=== PATIENT | male | born 1950 | race Caucasian/White ===

== ENCOUNTER → 2017-01-21 | Outpatient (CLI) | payer OTHER ==
[~2017-01-21] MED LIST: ASCA500; FLV400; METO50TA7; OXYC-57 PO; PROM25TA PO
[2017-01-21 09:41] LABS: BASO % 0.8 %; BASO ABS # 0.04 K/uL (0-0.2); COMPLETE YES; EOS % 3.4 %; HEMATOCRIT 45.9 % (42-52); IG% 0.2 %; LYMPH % 33.9 %; LYMPH ABS # 1.71 K/uL (1.2-3.4); MEAN CELL VOLUME 91.1 fL (80-100); MEAN CORPUSCULAR HEMOGLOBIN 33.1 pg (25-34); MEAN CORPUSCULAR HGB CONC 36.4 g/dl (32-36); MEAN PLATELET VOLUME 10.8 fL (7.4-10.4); MONO % 9.3 %; NEUT % 52.4 %; PLATELET COUNT 172 K/uL (130-400); RED BLOOD COUNT 5.04 M/uL (4.7-6.1); WHITE BLOOD COUNT 5.04 K/uL (4.8-10.8)
[2017-01-21 10:12] LABS: ESTIMATED AVERAGE GLUCOSE 100 mg/dl; HA1C FLAG Normal (Normal)
[2017-01-21 10:16] LABS: BLOOD UREA NITROGEN 14 mg/dl (7-18); BUN/CREATININE RATIO 13.8 (10-20); CALCIUM 9.2 mg/dl (8.5-10.1); CARBON DIOXIDE 31 mmol/L (21-32); CHLORIDE 102 mmol/L (98-107); CHOLESTEROL 148 mg/dl (0-200); CREATININE 1.04 mg/dl (0.60-1.40); GLUCOSE 112 mg/dl (70-99); POTASSIUM 3.4 mmol/L (3.5-5.1); SODIUM 139 mmol/L (136-145)
[2017-01-21 10:20] LABS: URINE APPEARANCE CLEAR (CLEAR); URINE BILIRUBIN NEG (NEG); URINE COLOR YELLOW; URINE EPITHELIAL CELL AUTO 0-5 /lpf (0-5); URINE NITRITE NEG (NEG); URINE SPECIFIC GRAVITY 1.022 (1.000-1.030); UROBILINOGEN NEG (NEG)
[2017-01-21 10:24] LABS: MANUAL MICROSCOPIC REQUIRED? NO; REVIEW REQ? NO
[2017-01-21 10:27] LABS: CHOLESTEROL/HDL RATIO 2.7; HDL CHOLESTEROL 55 mg/dl; LDL CHOLESTEROL CALCULATED 79 mg/dl; TRIGLYCERIDES 72 mg/dl (0-150); VERY LOW DENSITY LIPOPROT CALC 14 mg/dl
== END | disposition home or self-care (01) ==
LOC: C.LAB1850 08:41
PROVIDERS: ATTEND Internal Medicine
DX: I10 Essential (primary) hypertension (principal)

== ENCOUNTER → 2017-01-31 | Outpatient (CLI) | payer OTHER | END | disposition home or self-care (01) | LOC: C.RDSM 13:44 | PROVIDERS: ATTEND Orthopaedic Surgery | DX: M25.571 Pain in right ankle and joints of right foot (principal) ==

== ENCOUNTER → 2017-02-07 | Outpatient (CLI) | payer OTHER ==
--- NOTE | 2017-02-07 13:59 | DIAGNOSTIC IMAGING REPORT ---
R LOWER EXT JOINT WITHOUT CLINICAL HISTORY: 66 years-old Male with R52. Chronic right ankle pain, most pronounced medially within the region of the calcaneus COMPARISON: Right ankle radiographs 01/31/2017. TECHNIQUE: Multiplanar, multi sequence MRI of the right ankle was performed without contrast. FINDINGS: LATERAL LIGAMENT COMPLEX: The anterior talofibular ligament, calcaneofibular ligament and posterior talofibular ligaments are intact. SYNDESMOTIC LIGAMENTS: There is mild thickening of the anterior-inferior tibiofibular ligament suggesting chronic sprain. The interosseous membrane and posterior-inferior tibiofibular ligaments are intact. DELTOID LIGAMENT COMPLEX: The superficial and deep components of the deltoid ligament are intact. ANTERIOR TENDONS: The tibialis anterior, extensor hallucis longus and extensor digitorum longus tendons are normal in position, morphology and signal. LATERAL TENDONS: There is a high-grade split tear of the peroneus brevis tendon extending for a length of 2.9 cm along its posterior malleolar and inframalleolar coarse which is nicely seen on images 26 through 29 of series 10 and image 5 of series 6. The peroneus longus tendon appears intact. MEDIAL TENDONS: The posterior tibialis is intact with mild inframalleolar tenosynovitis. The flexor digitorum longus and flexor hallucis longus tendons are intact. PLANTAR FASCIA: There is mild thickening with surrounding soft tissue edema surrounding the medial cord plantar fascia as seen on image 29 series 8 and image 13 series 6 compatible with acute plantar fasciitis. No evidence of plantar fascial tear or plantar fascial nodules. ACHILLES TENDON: The Achilles tendon appears intact. Moderate amount of edema is noted anterior to the tendon compatible with paratenonitis. Trace fluid is noted within the retrocalcaneal bursa compatible with mild bursitis, image 14 series 6. SINUS TARSI: There is normal fat signal within the sinus tarsi. The interosseous and cervical ligaments are normal. The navicular-calcaneal (spring) ligament is without acute abnormality. TARSAL TUNNEL: There are no obstructing lesions within the tarsal tunnel. Mild amount of fluid is noted within the posterior recess. BONE MARROW: Mild subcortical cystic changes are noted within the anterior calcaneus. Minimal subcortical cystic change/edema seen within the first cuneiform and navicular, likely degenerative with mild marginal spurring. Focal osteochondral defect measuring 5 x 4 mm involves the medial tibial plafond with mild associated subcortical edema, image 23 series 8 and image 16 series 6. No definite intra-articular loose body or acute fracture identified. IMPRESSION: 1. 5 mm osteochondral defect involves the medial tibial plafond with mild associated subcortical edema. No intra-articular loose body identified. 2. High-grade split tear of the peroneus brevis tendon extends for a length of 2.9 cm along its posterior malleolar and inframalleolar coarse . 3. Moderate Achilles paratenonitis with trace retrocalcaneal bursitis. 4. Mild acute plantar fasciitis. 5. Mild tibialis posterior tenosynovitis. The above report was generated using voice recognition software. It may contain grammatical, syntax or spelling errors. Electronically signed by: Aubrey Castillo M.D. 02/07/2017 1:57 PM Dictated Date/Time: 02/07/2017 1:38 PM
== END | disposition home or self-care (01) ==
LOC: C.MRI 12:43
PROVIDERS: ATTEND Orthopaedic Surgery
DX: M25.571 Pain in right ankle and joints of right foot (principal); M25.871 Other specified joint disorders, right ankle and foot; S96.911A Strain of unspecified muscle and tendon at ankle and foot level, right foot, initial encounter; X58.XXXA Exposure to other specified factors, initial encounter; M77.51 Other enthesopathy of right foot and ankle

== ENCOUNTER → 2017-02-11 | Outpatient (CLI) | payer OTHER ==
--- NOTE | 2017-02-18 13:39 | CODING QUERY MEDICAL NECESSITY ---
SUPPORTING DIAGNOSIS NEEDED A supporting diagnosis is required for the test/procedure performed on this patient in order for us to be reimbursed by the patient's insurance. Please provide a supporting diagnosis for the following test/procedure listed below next to the test name along with your signature. *If there is no additional diagnosis for this patient that would support the following test/procedure please document that below next to the test/procedure. Test(s)/Procedure(s) that require a supporting diagnosis: * VITAMIN D, 25-HYDROXY DIAGNOSIS: Provider Signature: Date: Thank you Bianca Jaeger [employer] Information Management Once completed, please kindly fax back to [phone] For questions please call [phone]
== END | disposition home or self-care (01) ==
LOC: C.LAB1850 10:53
PROVIDERS: ATTEND Orthopaedic Surgery
DX: M84.376A Stress fracture, unspecified foot, initial encounter for fracture (principal); X58.XXXA Exposure to other specified factors, initial encounter

== ENCOUNTER → 2017-02-14 | Outpatient (CLI) | payer OTHER ==
[~2017-02-14] MED LIST changes: +ASPECOTC PO; +CHOL1TAB42 PO; +INDA1TAB3 PO; -METO50TA7; +METO50TA8 PO; +MULT-506 PO; +OMEG10007 PO
--- NOTE | 2017-02-14 14:37 | DIAGNOSTIC IMAGING REPORT ---
BONE SCAN 3 PHASE LIMITED CLINICAL HISTORY: RT FOOT CALCANEAL STRESS FRACTURE. Right heel pain. TECHNIQUE: Immediately and 3 hours following the intravenous administration of 26.9 mCi of technetium 99 M MDP, 3 phase bone scan of the feet were obtained. COMPARISON STUDY: Right foot MRI 02/07/2017. FINDINGS: No abnormal radiotracer uptake within the visualized osseous structures of the right or left foot suggest a fracture. Soft tissues are unremarkable. No abnormal radiotracer uptake on the blood flow or blood pool sequences. IMPRESSION: No abnormal radiotracer uptake seen within the osseous structures of the right or left foot to suggest a fracture. Electronically signed by: Shashank Pathak M.D. 02/14/2017 2:36 PM Dictated Date/Time: 02/14/2017 2:31 PM
== END | disposition home or self-care (01) ==
LOC: C.NUCL 10:25
PROVIDERS: ATTEND Orthopaedic Surgery
DX: M79.671 Pain in right foot (principal)

== ENCOUNTER → 2017-04-02 | Day surgery (SDC) | payer OTHER ==
[2017-03-20 10:12] VITALS: Ht 177.8 cm; Wt 84.1 kg
[~2017-04-02] VITALS: Ht 177.8 cm; Wt 84.1 kg
[~2017-04-02] MED LIST changes: -ASCA500; -ASPECOTC PO; +ASPI325T45 PO; -FLV400; +LIDOCAINE HCL 2% 2 ML VIAL (20MG/ML) ONE; -OXYC-57 PO; -PROM25TA PO; +PROPOFOL IV EMULSION 10 MG/ML 20 ML VIAL IV ONE
[2017-04-02 13:44] VITALS: TEMP 36.4
--- NOTE | 2017-04-02 13:54 | Endo History and Physical ---
History & Physical Date of Service: Apr 02, 2017. Chief Complaint: screening Referring Physician: Dr. Tj Cummings History of Present Illness 66 yo CM who presents for screening colonoscopy. Past Surgical History Hx Cardiac Surgery: No Hx Internal Defibrillator: No Hx Pacemaker: No Hx Abdominal Surgery: No Hx of Implantable Prosthesis: No Hx Post-Op Nausea and Vomiting: No Hx Cancer Surgery: No Hx Thoracic Surgery: No Hx Orthopedic: Yes (LEFT SHOULDER ARTHROSCOPY) Hx Urinary Tract Surgery: Yes (LITHOTRIPSY, CYSTO WITH STENT) Family History None Social History Smoking Status: Never Smoker Hx Substance Use: No Hx Alcohol Use: Yes (1-2 GLASS WINE/DAY) Allergies Coded Allergies: No Known Allergies (Verified , 03/20/17) Current Medications Reported Home Medications Medications Dose Route/Sig Max Daily Dose Days Date Category Vitamin D (Cholecalciferol) 5,000 Unit Tab 5,000 Units PO QAM 03/20/17 Reported Multivitamin (Multivitamins) Tab 1 Tab PO QAM 03/20/17 Reported Lozol (Indapamide) 1.25 Mg Tab 1.25 Mg PO QAM 03/20/17 Reported [place]-3 (Fish Oil) 1 Ea Cap 1 Cap PO QAM 03/20/17 Reported Aspirin 325 Mg Tab 325 Mg PO QAM 03/20/17 Reported Toprol-Xl (Metoprolol Succinate) 50 Mg Tabcr 50 Mg PO QAM 01/27/06 Reported Vital Signs Weight (Kilograms): 84.09 Height (Feet): 5 Height (Inches): 10 Date Time Temp Pulse Resp B/P (MAP) Pulse Ox O2 Delivery O2 Flow Rate FiO2 04/02/17 13:44 36.4 50 18 159/88 (111) 98 Room Air Physical Exam General Appearance: WD/WN, no apparent distress Respiratory/Chest: Auscultation: breath sounds normal Cardiovascular: Heart Auscultation: RRR Abdomen: Bowel Sounds: normal Inspection & Palpation: soft, non-distended, no tenderness, guarding & rebound Assessment and Plan Assessment: 66 yo CM who presents for screening colonoscopy. Plan: Proceed with colonoscopy.
--- NOTE | 2017-04-02 14:34 | Discharge Instructions ---
Endoscopy Patient Instructions Date / Procedure(s) Performed Apr 02, 2017. Colonoscopy Allergy Information Coded Allergies: No Known Allergies (Verified , 03/20/17) Discharge Date / Findings Apr 02, 2017. Colon polyp Internal hemorrhoids Medication Instructions Stopped Medication(s): stopped ASA and supplements on Friday OK to resume all medications today as prescribed Reported Home Medications Medications Dose Route/Sig Max Daily Dose Days Date Category Vitamin D (Cholecalciferol) 5,000 Unit Tab 5,000 Units PO QAM 03/20/17 Reported Multivitamin (Multivitamins) Tab 1 Tab PO QAM 03/20/17 Reported Lozol (Indapamide) 1.25 Mg Tab 1.25 Mg PO QAM 03/20/17 Reported [place]-3 (Fish Oil) 1 Ea Cap 1 Cap PO QAM 03/20/17 Reported Aspirin 325 Mg Tab 325 Mg PO QAM 03/20/17 Reported Toprol-Xl (Metoprolol Succinate) 50 Mg Tabcr 50 Mg PO QAM 01/27/06 Reported Provider Instructions Activity Restrictions - No exercising or heavy lifting for 24 hours. - Do not drink alcohol the day of the procedure. - Do not drive a car or operate machinery until the day after the procedure. - Do not make any important decisions or sign important papers in 24 hours after the procedure. Following Day: - Return to full activity which may include returning to work/school. Diet Start your diet with liquids and light foods (jello, soup, juice, toast). Then eat your usual diet if not nauseated. Treatment For Common After Affects For mild abdominal pain, bloating, or excessive gas: - Rest - Eat lightly - Lie on right side Follow-Up Information Follow-up with Dr. Tj Cummings as scheduled Anesthesia Information What You Should Know You have had a procedure that required some medicine to reduce anxiety and discomfort. This treatment is called moderate sedation. After receiving the treatment, you may be sleepy, but you will be able to breathe on your own. The effects of the treatment may last for several hours. Follow these instructions along with Activity/Diet recommendations noted above: * Do NOT do anything where dizziness or clumsiness would be dangerous. * Rest quietly at home today, then you can be up and about tomorrow. * Have a responsible person stay with you the rest of today. * You may have had an I.V. today. If so, you may take the dressing off later today. Recommendations Call your doctor if: * Trouble breathing * Continuous vomiting for more than 24 hours * Temperature above 101 degrees * Severe abdominal pain or bloating * Pain not relieved by pain medicine ordered * There is increased drainage or redness from any incision * A large amount of rectal bleeding greater than 2-3 tablespoons. (If you had a polyp/s removed or have hemorrhoids, a small amount of blood - from the rectum is to be expected.) * You have any unanswered questions or concerns. IN THE EVENT OF A SERIOUS EMERGENCY, GO TO THE NEAREST EMERGENCY ROOM Your discharge instructions were prepared by provider Jey Jimenes. Patient Instructions Signature Page Manjinder Barraza Patient (or Guardian) Signature/Date: I have read and understand the instructions given to me by my caregivers. Caregiver/RN/Doctor Signature/Date: The above-named patient and/or guardian has received patient instructions on this date. + Original Patient Signature Page (only) stays with chart. Please make copy for patient.
--- NOTE | 2017-04-02 14:39 | GI REPORT ---
Procedure Date: 04/02/2017 1:35 PM Procedure: Colonoscopy Indications: Screening for colorectal malignant neoplasm Medicines: Monitored Anesthesia Care Complications: No immediate complications. Estimated Blood Loss: Estimated blood loss: none. Procedure: Pre-Anesthesia Assessment: - Prior to the procedure, a History and Physical was performed, and patient medications and allergies were reviewed. The patient's tolerance of previous anesthesia was also reviewed. The risks and benefits of the procedure and the sedation options and risks were discussed with the patient. All questions were answered, and informed consent was obtained. Prior Anticoagulants: The patient has taken no previous anticoagulant or antiplatelet agents. ASA Grade Assessment: II - A patient with mild systemic disease. After reviewing the risks and benefits, the patient was deemed in satisfactory condition to undergo the procedure. After I obtained informed consent, the scope was passed under direct vision. Throughout the procedure, the patient's blood pressure, pulse, and oxygen saturations were monitored continuously. The scope was introduced through the anus and advanced to the terminal ileum. The colonoscopy was performed without difficulty. The patient tolerated the procedure well. The quality of the bowel preparation was good. The terminal ileum, ileocecal valve, appendiceal orifice, and rectum were photographed. Findings: The perianal and digital rectal examinations were normal. A 4 mm polyp was found in the sigmoid colon. The polyp was sessile. The polyp was removed with a cold snare. Resection and retrieval were complete. Non-bleeding internal hemorrhoids were found during retroflexion. The hemorrhoids were small. Impression: - One 4 mm polyp in the sigmoid colon, removed with a cold snare. Resected and retrieved. - Non-bleeding internal hemorrhoids. Recommendation: - Resume previous diet. - Continue present medications. - Repeat colonoscopy for surveillance based on pathology results. - Return to primary care physician as previously scheduled. Jey Jimenes, DO 04/02/2017 2:38:50 PM This report has been signed electronically. Note Initiated On: 04/02/2017 1:35 PM I attest to the content of the Intraoperative Record and orders documented therein, exceptions below
[2017-04-02 15:10] VITALS: BP 120/83; PULSE 48; O2SAT 97
--- NOTE | 2017-04-02 15:21 | Anesthesiology Progress Note ---
Anesthesia Post Op Note Date & Time Apr 02, 2017 at 15:21 Vital Signs Pain Intensity: 0 Vital Signs Past 12 Hours Date Time Temp Pulse Resp B/P (MAP) Pulse Ox O2 Delivery O2 Flow Rate FiO2 04/02/17 15:10 48 18 120/83 (95) 97 Room Air 04/02/17 14:56 51 18 126/76 (93) 96 Room Air 04/02/17 14:49 46 18 106/63 (77) 95 Room Air 04/02/17 14:41 49 18 103/64 (77) 95 Room Air 04/02/17 14:36 55 18 106/67 (80) 95 Room Air 04/02/17 13:44 36.4 50 18 159/88 (111) 98 Room Air Notes Mental Status: alert / awake / arousable, participated in evaluation Pt Amnestic to Procedure: Yes Nausea / Vomiting: adequately controlled Pain: adequately controlled Airway Patency, RR, SpO2: stable & adequate BP & HR: stable & adequate Hydration State: stable & adequate Anesthetic Complications: no major complications apparent
== END | disposition home or self-care (01) ==
LOC: C.GI 12:42
PROVIDERS: ATTEND Internal Medicine
DX: Z12.11 Encounter for screening for malignant neoplasm of colon (principal); D12.5 Benign neoplasm of sigmoid colon; K64.8 Other hemorrhoids; I10 Essential (primary) hypertension; M19.90 Unspecified osteoarthritis, unspecified site; Z87.442 Personal history of urinary calculi; Z79.82 Long term (current) use of aspirin; Z85.820 Personal history of malignant melanoma of skin

== ENCOUNTER 2023-07-09 05:25 | Observation (INO) ==
--- NOTE | 2023-07-09 05:46 | Emergency Department Note ---
Impression & Plan Lower back pain, History of lumbar surgery, History of prostate cancer ED Provider Note NAME: TANIA ALVARENGA AGE: 72 SEX: M : 1950 ARRIVES VIA: Ambulance INFORMANT: [Patient][nursing] ED PROVIDER(S): [Mario Ko MD] CHIEF COMPLAINT: Back pain HISTORY OF PRESENT ILLNESS: The patient is a 72-year-old male who states he has had previous back surgery in 2020. He has hardware in place. The patient has a history also of prostate cancer. The patient states that he was here 2 days ago for lower back pain that he thought occurred after he stepped down off of his lawnmower. He has pain across the lower back that is worse with any movement. The patient was seen in the ED and a lumbar spine series was done, there was no fracture or issues with the hardware. He was given Robaxin and oxycodone. The patient states that his pain is at the point where he can barely move. He could not get out of bed today, he presents by ambulance. In route, he was given IV Zofran and 100 mcg of IV fentanyl, the fentanyl has helped his discomfort. The patient does not feel pain radiating down his legs. No difficulty with urination. No fever. He does not have any leg weakness. He is concerned because instead of feeling better, he feels worse. PMHx/PSHx/Social Hx: See Below PHYSICAL EXAM: GENERAL: Patient is in no acute distress. HEENT: No acute trauma, normocephalic atraumatic, mucous membranes moist, no nasal congestion. NECK: No stridor, no adenopathy, no meningismus, trachea is midline. LUNGS: Clear to auscultation bilaterally, no wheeze, no rhonchi, breath sounds equal. HEART: Without murmurs gallops or rubs, regular rate and rhythm. ABDOMEN: Soft, nontender, no peritonitis. EXTREMITIES: No cyanosis, full range of motion of all the joints without pain or difficulty. NEUROLOGIC: Oriented x 3, no acute motor or sensory deficits, no focal weakness. I cannot elicit any reflexes in the patella or Achilles. His great toe strength is intact and strong bilaterally with dorsiflexion. Lower extremity plantar flexion bilaterally also is intact and strong. SKIN: No jaundice, no diaphoresis. Back: His pain worsens with any movement however, I cannot elicit any area of true discomfort with palpation. DIFFERENTIAL DIAGNOSIS: Musculoskeletal pain, fracture, metastasis, hematoma, hardware loosening, disc herniation, among others. EMERGENCY DEPARTMENT PROCEDURES: MEDICAL DECISION MAKING: There is no leukocytosis or concerning anemia. There is a normal platelet count. No renal failure or significant electrolyte abnormality. Urinalysis result is pending. On exam, the patient was not febrile or toxic. I could not elicit any reflexes in the lower extremities. His strength in the lower extremities seemed intact and equal bilaterally. His lower back pain did seem to worsen with any type of movement. The patient was ordered for IV morphine to be given as needed for pain. He was ordered for a Lidoderm patch. Given the circumstances, an MRI of the lumbar spine was ordered, this result is pending. At this point, the case is being assumed by Dr. Frey at the change of shift. Disposition pending. Prior/Outside records/notes reviewed: Today's EMS notes describing his presentation and transport to this hospital. Imaging/x-ray results per my interpretation: Chronic Medical/Social conditions affecting care: Advanced age, history of prostate cancer as well as lumbar back surgery. Care/Management discussed with: Level of care consideration(s): After review of the information above and other included data: -- Pending DISPOSITION: Still a patient here in the ED Past Med/Surg History Problem List (Updated 07/09/23 @ 06:09 by Mario Ko MD) History of prostate cancer (Acute) History of lumbar surgery (Acute) Lower back pain (Acute) Low back pain (Acute) Prostate cancer (Chronic 03/18/22) Left epididymitis Testicular pain Right hip pain Hypothyroidism in adult Nonobstructive atherosclerosis of coronary artery [facility] 2002: 20% prox LAD stenosis, 30% mid LAD stenosis, 50% ramus intermedius Hypertension (Chronic) Erectile dysfunction (Chronic) Tubular adenoma of colon (Chronic) Medical History Sinus bradycardia Nephrolithiasis Surgical History Hx of appendectomy History of arthroscopy of left shoulder S/P lumbar laminectomy Family History Mother Dementia Father Heart disease Hypertension Diabetes mellitus, type II Brother Heart disease Kidney transplant recipient, Onset Age: 51 Diabetes Brother Diabetes Heart disease Sister Diabetes Sister No problems noted. 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; Feels Safe at Home: Yes Childhood Exposure to Second-Hand Smoke: No Dental Care, Regularly: No Physical Activity Frequency: 5-6 Times per Week Physical Activity Frequency Comment: walk a mile and a half a day Seatbelt Use: always Sunscreen Use: No Allergies Allergies Allergy/AdvReac Type Severity Reaction Status Date / Time No Known Drug Allergies Allergy Verified 05/22/23 13:15 Home Meds Home Medications Medication Instructions Recorded Confirmed cholecalciferol (vitamin D3) 25 25 mcg PO DAILY 04/04/22 05/22/23 mcg (1,000 unit) capsule [id number] 120 mcg-lutein tab PO 04/04/22 05/22/23 150 mcg-herb 50 mg chewable tablet (Alive Men's 50 Plus Multivitamin) Previous Rx's Medication Instructions Recorded sildenafil 50 mg tablet 50 mg PO DAILY PRN sexual activity 12/20/21 #30 tabs tamsulosin 0.4 mg capsule 0.4 mg PO DAILY #30 caps 07/16/22 levothyroxine 25 mcg tablet 25 mcg PO DAILY #90 tabs 01/01/23 olmesartan 40 mg tablet 40 mg PO DAILY #90 tabs 01/01/23 rosuvastatin 10 mg tablet 10 mg PO DAILY #90 tabs 01/28/23 indapamide 1.25 mg tablet 1.25 mg PO DAILY #90 tabs 03/18/23 aspirin 81 mg tablet,delayed 81 mg PO DAILY #90 tabs 03/27/23 release methocarbamol 500 mg tablet 500 mg PO TID PRN muscle spasm #12 07/07/23 tabs Results & Data (ED) Vital Signs Vital Signs - 24 hr 07/09/23 05:38 07/09/23 06:39 Temperature 36.6 C Temperature Source Oral Pulse Rate 52 L Pulse Rate [Finger] 50 L Pulse Rhythm Regular Pulse Strength Normal Respiratory Rate 14 16 Respiratory Effort / Characteristics Non-Labored Non-Labored Respiratory Depth Normal Normal Respiratory Pattern Regular Regular Blood Pressure 135/74 Blood Pressure Mean 94 Blood Pressure Position Sitting Pulse Oximetry 94 94 Oxygen Delivery Method Room Air Room Air Sepsis Recent Fever Within 48 Hours No Sepsis New/Unexplained Change in Mental Status No Sepsis Action Taken by Nursing No Action Required Home Medications Current Medication List: was personally reviewed by me Laboratory Data Attestation: I reviewed the patient's lab results. 07/09/23 05:32 07/09/23 05:32 Lab Results 07/09/23 Range/Units 05:32 WBC 5.80 (4.8-10.8) K/ul RBC 4.51 L (4.70-6.10) M/uL Hgb 14.6 (14.0-18.0) g/dl Hct 41.0 L (42.0-52.0) % MCV 90.9 (80.0-100.0) fL MCH 32.4 (25.0-34.0) pg MCHC 35.6 (32.0-36.0) g/dL RDW Std Deviation 40.8 (36.4-46.3) fL RDW Coeff of Harsha 12.3 (11.5-14.5) % Plt Count 163 (130-400) K/uL MPV 10.3 (9.4-12.4) fL Immature Gran % (Auto) 0.3 % Neut % (Auto) 67.5 % Lymph % (Auto) 19.3 % [place] % (Auto) 8.6 % Eos % (Auto) 3.3 % Baso % (Auto) 1.0 % Neut # (Auto) 3.91 (1.40-6.50) K/uL Lymph # (Auto) 1.12 L (1.20-3.40) K/uL [place] # (Auto) 0.50 (0.11-0.59) K/uL Eos # (Auto) 0.19 (0.00-0.50) K/uL Baso # (Auto) 0.06 (0.00-0.20) K/uL Immature Gran # (Auto) 0.02 (0.01-0.20) K/uL Sodium 140 (136-145) mmol/L Potassium 3.9 (3.5-5.1) mmol/L Chloride 106 (98-107) mmol/L Carbon Dioxide 28 (21-32) mmol/L Anion Gap 6 (3-11) BUN 23 (6-23) mg/dl Creatinine 1.22 (0.6-1.4) mg/dl Est Cr Clr Drug Dosing 53.1 ml/min Est GFR ( Amer) 67.3 ml/min Est GFR (Non-Af Amer) 58.0 ml/min BUN/Creatinine Ratio 18.9 (10-20) Glucose 119 H (70-99(Fasting)) mg/dl Calcium 9.6 (8.6-10.3) mg/dl Administered Medications Morphine Sulfate (Morphine Sulfate 4 Mg/Ml 1 Ml Carp\Vial) 4 mg IV Q30M PRN PRN Reason: Pain Stop: 07/23/23 05:38 Last Admin: 07/09/23 06:31 Dose: 4 mg Documented By: KEW Discontinued Medications Lidocaine (Lidocaine 5% 1 Patch) 1 patch TD NOW STA Stop: 07/09/23 05:40 Last Admin: 07/09/23 06:31 Dose: 1 patch Documented By: HERBERTH Discharge Plan Visit Data Chief Complaint: Back Injury/Pain Stated Complaint: BACK PAIN, HERE FRIDAY FOR SAME ED Provider: Mario Ko Discharge Problem: Lower back pain, History of lumbar surgery, History of prostate cancer Patient Disposition: Still a Patient Condition: Good Forms Stand Alone Forms: My [facility] [employer] Prescriptions Prescriptions: No Action cholecalciferol (vitamin D3) 25 mcg (1,000 unit) capsule 25 mcg PO DAILY Alive Men's 50 Plus Multivit 120 mcg-150 mcg -50 mg tablet,chewable PO tamsulosin 0.4 mg capsule 0.4 mg PO DAILY Qty: 30 5RF Patient Comments: taking once weekly depending on urinary symptoms Rx Instructions: Take one pill after supper. levothyroxine 25 mcg tablet 25 mcg PO DAILY Qty: 90 3RF Rx Instructions: 1 tablet, 1 hour before breakfast. olmesartan 40 mg tablet 40 mg PO DAILY Qty: 90 3RF rosuvastatin 10 mg tablet 10 mg PO DAILY Qty: 90 3RF indapamide 1.25 mg tablet 1.25 mg PO DAILY Qty: 90 3RF aspirin 81 mg tablet,delayed release (DR/EC) 81 mg PO DAILY Qty: 90 3RF sildenafil 50 mg tablet 50 mg PO DAILY PRN (Reason: sexual activity) Qty: 30 5RF methocarbamol 500 mg tablet 500 mg PO TID PRN (Reason: muscle spasm) Qty: 12 0RF Referrals Referrals: Sylvia Hartman MD [Primary Care Provider] - Discharge Problem: Lower back pain Qualifiers: Chronicity: acute Back pain laterality: bilateral Sciatica presence: without sciatica Qualified Code(s): M54.50 - Low back pain, unspecified
[2023-07-09 06:04] LABS: Basophils # (auto) 0.06 K/uL (0.00-0.20); Eosinophils # (auto) 0.19 K/uL (0.00-0.50); Eosinophils % (auto) 3.3 %; Hemoglobin 14.6 g/dl (14.0-18.0); Immature Granulocytes # (auto) 0.02 K/uL (0.01-0.20); Immature Granulocytes % (auto) 0.3 %; Lymphocytes # (auto) 1.12 K/uL (1.20-3.40); Lymphocytes % (auto) 19.3 %; Mean Corpuscular Hemoglobin 32.4 pg (25.0-34.0); Mean Corpuscular Hgb Conc 35.6 g/dL (32.0-36.0); Mean Corpuscular Volume 90.9 fL (80.0-100.0); Mean Platelet Volume 10.3 fL (9.4-12.4); Monocytes % (auto) 8.6 %; Neutrophils # (auto) 3.91 K/uL (1.40-6.50); Neutrophils % (auto) 67.5 %; Platelet Count 163 K/uL (130-400); RDW Coefficient of Variation 12.3 % (11.5-14.5); RDW Standard Deviation 40.8 fL (36.4-46.3); Red Blood Count 4.51 M/uL (4.70-6.10)
[2023-07-09 06:18] LABS: BUN Creatinine Ratio 18.9 (10-20); Calcium 9.6 mg/dl (8.6-10.3); Creatinine Clr Calc Pharmacy 53.1 ml/min; Est GFR (African American) 67.3 ml/min; Potassium 3.9 mmol/L (3.5-5.1)
[2023-07-09] MEDS: LIDOCAINE 5% 1 PATCH TD STA (06:31)
[2023-07-09] MEDS: MoRPHine SULFATE 4 MG/ML 1 ML CARP\\VIAL IV PRN ×2 (06:31→16:58)
[2023-07-09] MEDS: GADOBUTROL 65ML VIAL IV ONE (07:04)
--- NOTE | 2023-07-09 07:26 | Emergency Department Note ---
ED Visit Note The patient was taken in signout from Dr. Ko at the change of shift. Please see that note for details. The patient was pending MRI for intractable back pain. He had significant concern due to his history of prostate cancer and level of pain. MRI was performed and he was found to have a disc herniation with canal narrowing. Given his prior surgery at [facility], I did consult with his surgeon, Dr. Olsen. We reviewed the details of the MRI and the patient's history. Options were discussed about admission here for steroids and pain cont rol versus emergent transfer. He felt it was reasonable to try conservative management first with the option to follow him up promptly in the office after discharge. He did note if the patient does have escalation of symptoms or issues that the patient could be transferred for further care. Discussed this with the patient and significant other. They felt comfortable with this plan. Consultation was made with Dr. Delio Lee of the [facility] service. Patient was evaluated in the ER for further management. .
--- NOTE | 2023-07-09 07:47 | Magnetic Resonance Report ---
LUMBAR SPINE MRI WITH AND WITHOUT CONTRAST HISTORY: low back pain, hist surg and prostate cancer TECHNIQUE: Multiplanar multisequence MRI of the lumbar spine was performed both before and after the intravenous administration of contrast. COMPARISON: Lumbar spine MRI 11/05/2019. FINDINGS: For the purpose of the report the L5-S1 disc space will be located on axial image 11 of 17. No fracture or subluxation within the lumbar spine. There is posterior decompression and fusion from L3 through S1 with pedicle screws and rods. The visualized sacrum is intact. Paravertebral soft tissu es are unremarkable. Mild disc space narrowing at L2-L3. The conus terminates at the L1 level. Edema at the laminectomy sites is likely due to the postoperative change. No abnormal enhancement. L1-L2: Tiny broad-based posterior disc bulge without significant central canal or neural foraminal na rrowing. L2-L3: There is a broad-based posterior disc bulge asymmetric to the right with a small focal central disc protrusion. In conjunction with the ligamentum/facet hypertrophy this results in severe central canal narrowing with an AP diameter of 4 mm. There is also moderate to severe right and mild left ne ural foraminal narrowing due to the disc bulge and facet hypertrophy. This severe central canal narro wing results in mass effect along the cauda equina. L3-L4: No significant central canal narrowing due to the posterior decompression. No significant neur al foraminal narrowing. L4-L5: No significant central canal narrowing due to the posterior decompression. There is mild to mo derate right and mild left neural foraminal narrowing due to the facet hypertrophy. L5-S1: No significant central canal narrowing due to the posterior decompression. There is mild right and [id number] left neural foraminal narrowing. IMPRESSION: 1. No fracture or subluxation within the lumbar spine. 2. A broad-based posterior disc bulge asymmetric to the right with a small focal central disc protrus ion and ligamentum/facet hypertrophy at the L2-L3 level. This results in severe central canal narrowi ng with mass effect along the cauda equina. 3. Posterior decompression and fusion from L3 through S1 with pedicle screws and rods. No significant central canal narrowing at these levels. 4. Multilevel bilateral neural foraminal narrowing as described above. ACT 112: Negative or not required by law. Electronically signed by: Shashank Pathak M.D. 07/09/2023 7:46 AM
[2023-07-09] MEDS: dexAMETHasone**PF** 10 MG/ML VIAL IV ONE (11:41)
--- NOTE | 2023-07-09 11:55 | History & Physical Report ---
Date of Service July 09, 2023 Assessment & Plan (1) Lower back pain: Plan: Back pain without radiation Started suddenly 07/06 after stepping down from a lawnmower, no falls/traumatic injury MRIL-spine shows a broad-based posterior disc bulge with right-sided asymme try, small focal central disc protrusion with facet hydrophilia at L2-L3 resulting in severe central canal narrowing with mass effect along the cauda equina. No significant narrowing is seen at L3-S1. No fracture or subluxation is seen. - Findings were discussed w/ Dr. Frey prior to admission who discussed MRI in detail with [facility] neurosurgery Dr. Wang while patient was in the ER. As he has not had any bowel or bladder incontinence, saddle anesthesia, lower extremity weakness, or radiation/paresthesias into the legs he was recommended for initial medical therapy with steroids and outpatient follow-up to [facility]; however should he worsen, develop clinical signs of cauda equina, or fail conservative evaluation and then could follow-up for transfer for surgical intervention at that time. Of note patient has diminished patellar DTR bilaterally at baseline which has not changed. Patient was recommended for admission and conservative medical tx No new neurologic deficits at time of admitting exam. Strength/sensation intact - Continue dexamethasone 10mg daily Neurovascular checks every 4 hours Multimodal pain control Tylenol, lidocaine, dexamethasone, morphine for breakthrough Patient is on aspirin for primary prevention, this is held temporarily (2) Hypothyroidism in adult: Plan: Hypothyroidism Continue Synthroid (3) Hypertension: Plan: Hypertension Continue olmesartan Continue indapamide Aspirin temporarily held (4) Nonobstructive atherosclerosis of coronary artery: Plan: Nonischemic CAD Patient reports no history of chest pain, angina, limiting shortness of breath. No history of stents. No history of heart failure. Denies history of CAD Continue hypertension control as noted History of stents. Reports he is on aspirin daily for primary prevention. This is held on admission Continue statin (5) History of prostate cancer: Plan: - S/p radiation therapy. No lower urinary tract symptoms. Is no longer on Flomax and has not had any difficulty voiding in the last 24 hours Plan DVT prophylaxis: Heparin twice daily Disposition: Medical surgical CODE STATUS: Full code Diet: Full liquids, if any worsening symptoms/deficits make n.p.o. History of Present Illness Primary Care Provider: MD Matthew Arias is a 72-year-old male with a past medical history of colonic adenoma, prostate cancer, hypothyroidism, nonobstructive CAD, hypertension, and history of back pain s/p L3-L1 posterior decompression and fusion 03/23/2020 @ [facility] w/ Dr. Aneesh Olsen due to pain with complete relief postoperatively who presents to the ER with 2 days of lower back pain which occurred after stepping down off of his lawnmower. Patient has not had any falls. He notes that he has difficulty moving it due to pain which is localized in his lower back. He does not have any pain radiating to his legs, no saddle anesthesia, no bowel or bladder retention or incontinence, and has not had any weakness in his lower extremities but notes his movement is pain limited by exacerbation of pain in his mid to low back. No fever, chills, sweats or recent flulike symptoms. Due to severe pain and history of lumbar surgery MRI was obtained in the ER. MRIL-spine shows a broad-based posterior disc bulge with right-sided asymmetry, small focal central disc protrusion with facet hydrophilia at L2-L3 resulting in severe central canal narrowing with mass effect along the cauda equina. No significant narrowing is seen at L3-S1. No fracture or subluxation is seen. Above findings were discussed w/ Dr. Frey who discussed MRI in detail with [facility] neurosurgery Dr. Wang while patient was in the ER. As he has not had any bowel or bladder incontinence, saddle anesthesia, lower extremity weakness, or radiation/paresthesias into the legs he was recommended for initial medical therapy with steroids and outpatient follow-up to [facility]; however should he worsen, develop clinical signs of cauda equina, or fail conservative evaluation and then could follow-up for transfer for surgical intervention at that time. Patient was recommended for admission at [facility]. Per Pt: Friday was doing welli lais normal state of health, was away for a few weeks and went ot catch up mowing grass. Stepped off the platform to his zero turn fish straightener and had sudden jolt like pain in the middle of his low back. No radiation ot his legs. No weakness. Was able to finish mowing, but has progressively worsening pain in his low back slightly more L than R sided but which is mostly in the middle. Was seen in the ER, had an XR which was normal and returned home. Pain has been consistent and not improving, is tolerable 1-2/10 at rest, but with any movement has an increase to 9/10 pain. Came back into the ER today due to per sistent symptoms despite rest. Attempted tx: Methocarbamol yesterday, ibuprofen 2 tablets every 4-5 hours, 1x oxycodone this morning, and ice pack all with minimal relief. No weakness in th elegs, but back pain is worse with movement No numbness or tingling No saddle anesthesia Last urinated 1 hour ago, no difficulty with voiding 'other than moving to get there.' Past hsitory of prostate cancer, finished radiation last June. NO known mets. Was transiently on flomax, thi sis no longer required and has not had any hematuria. Last bowel movement was shortly before injuring his back. Denies bowel incontience. No history of heart attack or ischemic heart disease. Is on a statin, BP control, and baby aspirin for prevention. No history of DM/insulin use No history of DVT/PE. Medical History: Reviewed Medications: Reviewed Surgical History: Reviewed Family history: Reviewed Allergies: Reviewed Social History: No tobacco. Etoh 1 glass of wine in the evenings. No hx withdrawal. Code Status: Full Allergies Allergy/AdvReac Type Severity Reaction Status Date / Time No Known Drug Allergies Allergy Verified 05/22/23 13:15 Home Medications Medication Instructions Recorded Confirmed Type sildenafil 50 mg tablet 50 mg PO DAILY PRN sexual activity 12/20/21 07/09/23 Rx #30 tabs cholecalciferol (vitamin D3) 25 25 mcg PO DAILY 04/04/22 07/09/23 History mcg (1,000 unit) capsule htxabtin-shm-thcge 120 mcg-lutein 1 tab PO DAILY 04/04/22 07/09/23 History 150 mcg-herb 50 mg chewable tablet (Alive Men's 50 Plus Multivitamin) tamsulosin 0.4 mg capsule 0.4 mg PO DAILY #30 caps 07/16/22 07/09/23 Rx levothyroxine 25 mcg tablet 25 mcg PO DAILY #90 tabs 01/01/23 07/09/23 Rx olmesartan 40 mg tablet 40 mg PO DAILY #90 tabs 01/01/23 07/09/23 Rx rosuvastatin 10 mg tablet 10 mg PO DAILY #90 tabs 01/28/23 07/09/23 Rx indapamide 1.25 mg tablet 1.25 mg PO DAILY #90 tabs 03/18/23 07/09/23 Rx aspirin 81 mg tablet,delayed 81 mg PO DAILY #90 tabs 03/27/23 07/09/23 Rx release methocarbamol 500 mg tablet 500 mg PO TID PRN muscle spasm #12 07/07/23 07/09/23 Rx tabs ciclopirox 8 % topical solution 1 applic topical PM 07/09/23 07/09/23 History Past Med/Surg History Problem List (Updated 07/09/23 @ 06:09 by Mario Ko MD) History of prostate cancer (Acute) History of lumbar surgery (Acute) Lower back pain (Acute) Low back pain (Acute) Prostate cancer (Chronic 03/18/22) Left epididymitis Testicular pain Right hip pain Hypothyroidism in adult Nonobstructive atherosclerosis of coronary artery [facility] 2002: 20% prox LAD stenosis, 30% mid LAD stenosis, 50% ramus intermedius Hypertension (Chronic) Erectile dysfunction (Chronic) Tubular adenoma of colon (Chronic) Medical History Sinus bradycardia Nephrolithiasis Surgical History Hx of appendectomy History of arthroscopy of left shoulder S/P lumbar laminectomy Family History Mother Dementia Father Heart disease Hypertension Diabetes mellitus, type II Brother Heart disease Kidney transplant recipient, Onset Age: 51 Diabetes Brother Diabetes Heart disease Sister Diabetes Sister No problems noted. 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 NAD. Cooperative. HEENT: Atraumatic, normocephalic. Pupils equal and reactive. EOM intact, no gaze preference or deviation, no nystagmus. Pulm: CTAB A&P. -wheezes, -rales, -rhonchi. Symmetrical chest rise. No increased work of breathing. No respiratory distress. Cardiac: RRR. Radial pulses intact and symmetrical. Abdominal: Nontender, nondistended, soft. BS present. Back: No midline spinal tenderness. No radicular symptoms elicited on palpation. Patient indents is some right-sided paraspinal tension/discomfort at approximately L2-L4 without induction of radiating pain MOTOR: RUE: 5/5 Elbow flexion/extension, wrist flexi on/extension 5/5 intensive care unit registered nurse strength LUE: 5/5 Elbow flexion/extension, wrist flexi on/extension 5/5 intensive care unit registered nurse strength RLE: 5/5 to hip flexion although pain limited . 5/5 knee extension, ankle dorsiflexion/plantarflexion LLE: 5/5 to hip flexion although pain limited . 5/5 knee extension, ankle dorsiflexion/plantarflexion REFLEXES: 1/4 patellar, no ankle clonus SENSORY: Normal to touch in upper and lower extremities without deficit or asymmetry Results & Data Results & Data Vital Signs (Past 12 Hours) Vital Signs Temp Pulse Pulse Resp BP BP Pulse Ox 07/09/23 10:39 52 L 16 135/82 98 07/09/23 06:39 50 L 16 94 07/09/23 05:38 36.6 C 52 L 14 135/74 94 O2 Del Method 07/09/23 10:39 07/09/23 06:39 Room Air 07/09/23 05:38 Room Air PG Care Time/CCT Total # of Minutes Spent Total Time Spent with Patient: Total time spent is greater than 50% in coordination of care (as documented) at patient's floor/unit and/or counseling patient: Coding Level of Care Code 64292 INT INP/OBS CARE MIN Diagnoses Lower back pain M54.50 Back pain laterality: bilateral Chronicity: acute Sciatica presence: without sciatica Hypothyroidism in adult E03.9 Hypertension I10 Nonobstructive atherosclerosis of coronary artery I25.10 History of prostate cancer Z85.46 (1) Lower back pain Back pain laterality: bilateral Chronicity: acute Sciatica presence: without sciatica Qualified Code(s): M54.50 - Low back pain, unspecified
[2023-07-09] MEDS: MoRPHine SULFATE 2 MG/ML CARP IV PRN (12:49)
[2023-07-09 13:22] LABS: Appearance Urine Clear (Clear); Bilirubin Urine Negative (Negative); Blood Urine Negative (Negative); Color Urine Yellow; Glucose Urine UA Negative (Negative); Ketones Urine Negative (Negative); Leukocyte Esterase Urine Negative (Negative); Nitrite Urine Negative (Negative); Protein Urine Negative (Negative); Specific Gravity Urine 1.024 (1.000-1.030); Urobilinogen Urine Negative (Negative); pH Urine 5.5 (4.5-7.5)
[2023-07-09] MEDS ORDERED: METHOCARBAMOL 500 MG TABLET PO PRN (14:42)
[2023-07-09] MEDS: ACETAMINOPHEN 325 MG TAB PO PRN (14:47)
[2023-07-09] MEDS: KETOROLAC TROMETHAMINE 15 MG/ML VIAL IV PRN (15:33)
[2023-07-09] MEDS: HEPARIN SOD 5,000 UNIT/0.5 ML VIAL SQ SCH (20:59)
[2023-07-10] MEDS: LEVOTHYROXINE SODIUM 25 MCG TABLET PO SCH (05:22)
--- NOTE | 2023-07-10 08:27 | Hospitalist Progress Note ---
Date of Service July 10, 2023 Assessment & Plan (1) Lower back pain: Plan: - Patient experienced sudden onset of lower back pain without radiation that started suddenly 07/06 after stepping down from a lawnmower, no falls/traumatic injury. - History of back pain s/p L3-L1 posterior decompression and fusion 03/23/2020 [place] [facility] [place] Dr. Aneesh Olsen due to pain with complete relief postoperatively. - MRIL-spine on admission showed a broad-based posterior disc bulge with right- sided asymmetry, small focal central disc protrusion with facet hydrophilia at L2-L3 resulting in severe central canal narrowing with mass effect along the cauda equina. No significant narrowing is seen at L3-S1. No fracture or subluxation is seen. -- Findings were discussed w/ Dr. Frey prior to admission who discussed MRI in detail with [facility] [place] Dr. Wang while patient was in the ER. -- Patient was recommended for initial medical therapy with steroids and outpatient follow-up to [facility]; however should he worsen, develop clinical signs of cauda equina, or fail conservative evaluation and then could follow-up for transfer for surgical intervention at that time. -- Of note patient has diminished patellar DTR bilaterally at baseline which has not changed. - No new neurologic deficits. Strength/sensation intact. - Continue dexamethasone 10mg daily - Neurovascular checks every 4 hours - Multimodal pain control Tylenol, lidocaine, dexamethasone, morphine for b reakthrough - Patient is on aspirin for primary prevention, this is held temporarily (2) Hypothyroidism in adult: Plan: Continue Synthroid (3) Hypertension: Plan: Continue olmesartan Continue indapamide Aspirin temporarily held (4) Nonobstructive atherosclerosis of coronary artery: Plan: Patient reports no history of chest pain, angina, limiting shortness of breath. No history of stents. No history of heart failure. Denies history of CAD Continue hypertension control as noted History of stents. Reports he is on aspirin daily for primary prevention. This is held on admission Continue statin (5) History of prostate cancer: Plan: - S/p radiation therapy. No lower urinary tract symptoms. Is no longer on Flomax and has not had any difficulty voiding in the last 24 hours Plan Updated at bedside. Advanced diet to heart healthy. DVT prophylaxis: Heparin twice daily CODE STATUS: Full code Admission and Anticipated Discharge Date Admission Date: July 09, 2023 Subjective Patient seen and evaluated at bedside with . He reports that his lower back pain is somewhat improved compared to yesterday. He reports with slow and cautious movements, he is able to tolerate the lower back pain. He denies lower back pain at rest. He notes that his pain is a sharp sensation that is isolated to his lumbar region. He denies any pain radiating to his legs, saddle anesthesia, bowel or bladder retention or incontinence, lower extremity weakness, or numbness/tingling. He states that he has had some intermittent lumbar back pain when reaching for things in the past 6 months approximately, however when he stepped off the platform of his lawnmower he felt a sudden sharp pain in his lumbar region which brought him to the hospital. We discussed being seen by one of the spine surgeons here at [facility], however, the patient would like to stay with his prior surgeon at [facility] outpatient. Physical Exam Physical Exam: General: No acute distress, nondiaphoretic, well-developed, well-nourished. Skin: The skin was without rashes, erythema, edema, or bruising. Cardiac: Regular rate and rhythm without murmurs gallops or rubs. Pulm: Clear to auscultation bilaterally without wheezes, rales or rhonchi. No retractions or accessory muscle use. Abdominal: Positive bowel sounds x 4. Soft, nontender, without masses or organomegaly. No guarding or rebound tenderness. Neuro: A&O x3. No focal neurological deficits. Back: No midline spinal tenderness. No radicular symptoms elicited on palpation. Sensation is normal to touch bilaterally in lower extremities without deficits or asymmetry. Results & Data Results & Data Vital Signs (Past 12 Hours) Vital Signs Temp Pulse Resp BP Pulse Ox O2 Del Method 07/09/23 20:29 36.6 C 47 L 18 120/71 96 Room Air Laboratory Results Reviewed admission CBC, BMP, and UA Diagnostic Findings Reviewed Lumbar MRI 07/09/23: COMPARISON: Lumbar spine MRI 11/05/2019. FINDINGS: For the purpose of the report the L5-S1 disc space will be located on axial image 11 of 17. No fracture or subluxation within the lumbar spine. There is posterior decompression and fusion from L3 through S1 with pedicle screws and rods. The visualized sacrum is intact. Paravertebral soft tissues are unremarkable. Mild disc space narrowing at L2-L3. The conus terminates at the L1 level. Edema at the laminectomy sites is likely due to the postoperative change. No abnormal enhancement. L1-L2: Tiny broad-based posterior disc bulge without significant central canal or neural foraminal narrowing. L2-L3: There is a broad-based posterior disc bulge asymmetric to the right with a small focal central disc protrusion. In conjunction with the ligamentum/facet hypertrophy this results in severe central canal narrowing with an AP diameter of 4 mm. There is also moderate to severe right and mild left neural foraminal narrowing due to the disc bulge and facet hypertrophy. This severe central canal narrowing results in mass effect along the cauda equina. L3-L4: No significant central canal narrowing due to the posterior decompression. No significant neural foraminal narrowing. L4-L5: No significant central canal narrowing due to the posterior decompression. There is mild to moderate right and mild left neural foraminal narrowing due to the facet hypertrophy. L5-S1: No significant central canal narrowing due to the posterior decompression. There is mild right and jcld-[id number]-gkrrifny left neural foraminal narrowing. IMPRESSION: 1. No fracture or subluxation within the lumbar spine. 2. A broad-based posterior disc bulge asymmetric to the right with a small focal central disc protrusion and ligamentum/facet hypertrophy at the L2-L3 level. This results in severe central canal narrowing with mass effect along the cauda equina. 3. Posterior decompression and fusion from L3 through S1 with pedicle screws and rods. No significant central canal narrowing at these levels. 4. Multilevel bilateral neural foraminal narrowing as described above. PG Care Time/CCT Total # of Minutes Spent Total Time Spent with Patient: Total time spent is greater than 50% in coordination of care (as documented) at patient's floor/unit and/or counseling patient: Coding Level of Care Code 30157 SUB INP/OBS CARE 2/35MIN Diagnoses Lower back pain M54.50 Back pain laterality: bilateral Chronicity: acute Sciatica presence: without sciatica Hypothyroidism in adult E03.9 Hypertension I10 Nonobstructive atherosclerosis of coronary artery I25.10 History of prostate cancer Z85.46 (1) Lower back pain Back pain laterality: bilateral Chronicity: acute Sciatica presence: without sciatica Qualified Code(s): M54.50 - Low back pain, unspecified
[2023-07-10] MEDS: LOSARTAN POTASSIUM 50 MG TAB PO SCH (08:35)
[2023-07-10] MEDS: ROSUVASTATIN CALCIUM 10 MG TAB PO SCH (08:35)
[2023-07-10] MEDS: dexAMETHasone 10 MG in SYRINGE 0 ML IV SCH (08:35)
[2023-07-10] MEDS: INDAPAMIDE 1.25 MG TAB PO SCH (08:36)
[2023-07-10] MEDS: CHOLECALCIFEROL 25 MCG (1000 UNITS) TAB PO SCH (08:36)
[2023-07-10] MEDS: POLYETHYLENE (MIRALAX) 17 GM PACK PO SCH (08:39)
[2023-07-10] MEDS: MAGNESIUM HYDROXIDE SUSP 30 ML UDC PO PRN (14:07)
[2023-07-11 08:16] LABS: Hematocrit (blood only) 37.4 % (42.0-52.0); Hemoglobin 13.3 g/dl (14.0-18.0); Mean Corpuscular Hemoglobin 32.2 pg (25.0-34.0); Mean Corpuscular Hgb Conc 35.6 g/dL (32.0-36.0); Mean Corpuscular Volume 90.6 fL (80.0-100.0); Mean Platelet Volume 10.9 fL (9.4-12.4); Platelet Count 167 K/uL (130-400); RDW Coefficient of Variation 12.1 % (11.5-14.5); RDW Standard Deviation 39.9 fL (36.4-46.3); Red Blood Count 4.13 M/uL (4.70-6.10); White Blood Count 10.19 K/ul (4.8-10.8)
[2023-07-11] MEDS ORDERED: oxyCODONE/ACETAMINOPHEN 5mg/325mg TAB PO PRN (08:21)
[2023-07-11] MEDS ORDERED: traMADol HCL 50 MG TABLET PO PRN ×2 (08:21)
[2023-07-11 08:36] LABS: BUN Creatinine Ratio 27.5 (10-20); Calcium 9.2 mg/dl (8.6-10.3); Est GFR (African American) 68.6 ml/min; Est GFR (Non-African American) 59.2 ml/min; Potassium 3.9 mmol/L (3.5-5.1)
[2023-07-11] MEDS: oxyCODONE/ACETAMINOPHEN 5mg/325mg TAB PO PRN (12:06)
--- NOTE | 2023-07-11 13:27 | Discharge Summary ---
Discharge Summary Date of Service July 11, 2023 Notes For Next Care Provider Patient scheduled to follow-up with Dr. Olsen from neurosurgery at [facility] on 07/15/2023. Medication Changes From Visit Dexamethasone p.o. x 5 days, scheduled Tylenol x 5 days, and Ultram as needed for pain control prior to follow-up appointment at [facility]. Admission HPI Per Admitting Provider Matthew is a 72-year-old male with a past medical history of colonic adenoma, prostate cancer, hypothyroidism, nonobstructive CAD, hypertension, and history of back pain s/p L3-L1 posterior decompression and fusion 03/23/2020 @ [facility] w/ Dr. Aneesh Olsen due to pain with complete relief postoperatively who presents to the ER with 2 days of lower back pain which occurred after stepping down off of his lawnmower. Patient has not had any falls. He notes that he has difficulty moving it due to pain which is localized in his lower back. He does not have any pain radiating to his legs, no saddle anesthesia, no bowel or bladder retention or incontinence, and has not had any weakness in his lower extremities but notes his movement is pain limited by exacerbation of pain in his mid to low back. No fever, chills, sweats or recent flulike symptoms. Due to severe pain and history of lumbar surgery MRI was obtained in the ER. MRIL-spine shows a broad-based posterior disc bulge with right-sided asymmetry, small focal central disc protrusion with facet hydrophilia at L2-L3 resulting in severe central canal narrowing with mass effect along the cauda equina. No significant narrowing is seen at L3-S1. No fracture or subluxation is seen. Above findings were discussed w/ Dr. Frey who discussed MRI in detail with [facility] neurosurgery Dr. Wang while patient was in the ER. As he has not had any bowel or bladder incontinence, saddle anesthesia, lower extremity weakness, or radiation/paresthesias into the legs he was recommended for initial medical therapy with steroids and outpatient follow-up to [facility]; however should he worsen, develop clinical signs of cauda equina, or fail conservative evaluation and then could follow-up for transfer for surgical intervention at that time. Patient was recommended for admission at [facility]. Per Pt: Friday was doing welli nhis normal state of health, was away for a few weeks and went ot catch up mowing grass. Stepped off the platform to his zero turn primer and powder canning leader and had sudden jolt like pain in the middle of his low back. No radiation ot his legs. No weakness. Was able to finish mowing, but has progressively worsening pain in his low back slightly more L than R sided but which is mostly in the middle. Was seen in the ER, had an XR which was normal and returned home. Pain has been consistent and not improving, is tolerable 1-2/10 at rest, but with any movement has an increase to 9/10 pain. Came back into the ER today due to persistent symptoms despite rest. Attempted tx: Methocarbamol yesterday, ibuprofen 2 tablets every 4-5 hours, 1x oxycodone this morning, and ice pack all with minimal relief. No weakness in elegs, but back pain is worse with movement No numbness or tingling No saddle anesthesia Last urinated 1 hour ago, no difficulty with voiding 'other than moving to get there.' Past hsitory of prostate cancer, finished radiation last June. NO known mets. Was transiently on flomax, thi sis no longer required and has not had any hematuria. Last bowel movement was shortly before injuring his back. Denies bowel incontience. No history of heart attack or ischemic heart disease. Is on a statin, BP control, and baby aspirin for prevention. No history of DM/insulin use No history of DVT/PE. Medical History: Reviewed Medications: Reviewed Surgical History: Reviewed Family history: Reviewed Allergies: Reviewed Social History: No tobacco. Etoh 1 glass of wine in the evenings. No hx withdrawal. Code Status: Full Admission Exam Per Admitting Provider General: A&Ox3. NAD. Cooperative. HEENT: Atraumatic, normocephalic. Pupils equal and reactive. EOM intact, no gaze preference or deviation, no nystagmus. Pulm: CTAB A&P. -wheezes, -rales, -rhonchi. Symmetrical chest rise. No increased work of breathing. No respiratory distress. Cardiac: RRR. Radial pulses intact and symmetrical. Abdominal: Nontender, nondistended, soft. BS present. Back: No midline spinal tenderness. No radicular symptoms elicited on palpation. 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 5/5 knee extension, ankle dorsiflexion/plantarflexion LLE: 5/5 to hip flexion although pain limited. 5/5 knee extension, ankle dorsiflexion/plantarflexion REFLEXES: 1/4 patellar, no ankle clonus SENSORY: Normal to touch in upper and lower extremities without deficit or asymmetry Principal Dx & Hospital Course #1 = Principal Diagnosis (1) Lower back pain: - Patient experienced sudden onset of lower back pain without radiation that st arted suddenly 07/06 after stepping down from a lawnmower, no falls/traumatic injury. - History of back pain s/p L3-S1 posterior decompression and fusion 03/23/2020 @ [facility] w/ Dr. Aneesh Olsen due to pain with complete relief postoperatively. - No new neurologic deficits. Strength/sensation intact. - MRIL-spine on admission showed a broad-based posterior disc bulge with right- sided asymmetry, small focal central disc protrusion with facet hydrophilia at L2-L3 resulting in severe central canal narrowing with mass effect along the cauda equina. No significant narrowing is seen at L3-S1. No fracture or subluxation is seen. -- Findings were discussed w/ Dr. Frey prior to admission who discussed MRI in detail with [facility] neurosurgery Dr. Wang while patient was in the ER. -- Patient was recommended for initial medical therapy with steroids and outpatient follow-up to [facility]; however should he worsen, develop clinical signs of cauda equina, or fail conservative evaluation and then could follow-up for transfer for surgical intervention at that time. -- Of note patient has diminished patellar DTR bilaterally at baseline which has not changed. - Upon discharge: -- Dexamethasone 4 mg PO daily x 5 days -- Scheduled Tylenol x 5 days -- Short course Ultram PRN for breakthrough pain -- CD of MRI lumbar spine imaging provided to patient prior to discharge - Patient is scheduled to follow-up with Dr. Olsen from neurosurgery at [facility] on 07/15/23. (2) Hypothyroidism in adult: Continue Synthroid (3) Hypertension: Continue olmesartan Continue indapamide Aspirin temporarily held while hospitalized (4) Nonobstructive atherosclerosis of coronary artery: Patient reports no history of chest pain, angina, limiting shortness of breath. No history of stents. No history of heart failure. Denies history of CAD Continue hypertension control as noted History of stents. Reports he is on aspirin daily for primary prevention. Continue statin (5) History of prostate cancer: - S/p radiation therapy. No lower urinary tract symptoms. Is no longer on Flom ax and has not had any difficulty voiding in the last 24 hours Plan CODE STATUS: Full code Discharge Exam General: No acute distress, nondiaphoretic, well-developed, well-nourished. Skin: The skin was without rashes, erythema, edema, or bruising. Cardiac: Regular rate and rhythm without murmurs gallops or rubs. Pulm: Clear to auscultation bilaterally without wheezes, rales or rhonchi. No retractions or accessory muscle use. Abdominal: Positive bowel sounds x 4. Soft, nontender, without masses or organomegaly. No guarding or rebound tenderness. Neuro: A&O x3. No focal neurological deficits. Back: No midline spinal tenderness. No radicular symptoms elicited on palpation. Sensation is normal to touch bilaterally in lower extremities without deficits or asymmetry. Updated Medication List Medication Instructions Recorded Confirmed Type sildenafil 50 mg tablet 50 mg PO DAILY PRN sexual activity 12/20/21 07/09/23 Rx #30 tabs cholecalciferol (vitamin D3) 25 25 mcg PO DAILY 04/04/22 07/09/23 History mcg (1,000 unit) capsule [id number] 120 mcg-lutein 1 tab PO DAILY 04/04/22 07/09/23 History 150 mcg-herb 50 mg chewable tablet (Alive Men's 50 Plus Multivitamin) tamsulosin 0.4 mg capsule 0.4 mg PO DAILY #30 caps 07/16/22 07/09/23 Rx levothyroxine 25 mcg tablet 25 mcg PO DAILY #90 tabs 01/01/23 07/09/23 Rx olmesartan 40 mg tablet 40 mg PO DAILY #90 tabs 01/01/23 07/09/23 Rx rosuvastatin 10 mg tablet 10 mg PO DAILY #90 tabs 01/28/23 07/09/23 Rx indapamide 1.25 mg tablet 1.25 mg PO DAILY #90 tabs 03/18/23 07/09/23 Rx aspirin 81 mg tablet,delayed 81 mg PO DAILY #90 tabs 03/27/23 07/09/23 Rx release methocarbamol 500 mg tablet 500 mg PO TID PRN muscle spasm #12 07/07/23 07/09/23 Rx tabs ciclopirox 8 % topical solution 1 applic topical PM 07/09/23 07/09/23 History dexamethasone 4 mg tablet 4 mg PO DAILY #5 tabs 07/11/23 Rx tramadol 50 mg tablet 50 mg PO Q4H PRN pain #15 tabs 07/11/23 Rx Hospital Stay Data Consultations 07/09/23 13:21 ED Decision to Admit Stat 07/11/23 12:00 Burn CD for patient Routine Diagnostic Imagining Performed 07/09/23 05:39 MR lumbar spine wo/w con Stat FINDINGS: For the purpose of the report the L5-S1 disc space will be located on axial image 11 of 17. No fracture or subluxation within the lumbar spine. There is posterior decompression and fusion from L3 through S1 with pedicle screws and rods. The visualized sacrum is intact. Paravertebral soft tissues are unremarkable. Mild disc space narrowing at L2-L3. The conus terminates at the L1 level. Edema at the laminectomy sites is likely due to the postoperative change. No abnormal enh ancement. L1-L2: Tiny broad-based posterior disc bulge without significant central canal or neural foraminal narrowing. L2-L3: There is a broad-based posterior disc bulge asymmetric to the right with a small focal central disc protrusion. In conjunction with the ligamentum/facet hypertrophy this results in severe central canal narrowing with an AP diameter of 4 mm. There is also moderate to severe right and mild left neural foraminal narrowing due to the disc bulge and facet hypertrophy. This severe central canal narrowing results in mass effect along the cauda equina. L3-L4: No significant central canal narrowing due to the posterior decompression. No significant neural foraminal narrowing. L4-L5: No significant central canal narrowing due to the posterior decompression. There is mild to moderate right and mild left neural foraminal narrowing due to the facet hypertrophy. L5-S1: No significant central canal narrowing due to the posterior decompression. There is mild right and [id number] left neural foraminal narrowing. IMPRESSION: 1. No fracture or subluxation within the lumbar spine. 2. A broad-based posterior disc bulge asymmetric to the right with a small focal central disc protrusion and ligamentum/facet hypertrophy at the L2-L3 level. This results in severe central canal narrowing with mass effect along the cauda equina. 3. Posterior decompression and fusion from L3 through S1 with pedicle screws and rods. No significant central canal narrowing at these levels. 4. Multilevel bilateral neural foraminal narrowing as described above. Pending Results Patient Have Any Pending Studies at Discharge: No Discharge Instructions Given to Patient (Per Discharging Provider) Mr. Barraza, You were admitted to the hospital due to severe lower back pain. You had an MRI of your lumbar spine on admission, and those results were discussed with Dr. Olsen from neurosurgery at [facility]. Dr. Olsen recommended medical management as surgical intervention is not required at this time, with outpatient follow-up at [facility]. You have received IV steroids as well as pain medication while hospitalized. Your new prescriptions as noted below have been sent to the [facility] pharmacy in [place]. Upon discharge from the hospital: * Take dexamethasone (steroid) 4 mg once daily in the morning x 5 days. * Take scheduled Tylenol (acetaminophen) 1000 mg every 8 hours x 5 days. * Take Ultram (tramadol) 50 mg every 4 hours as needed for breakthrough pain. * Follow-up with Dr. Olsen from neurosurgery at [facility] on 07/15/2023 for your scheduled appointment. * Please take your other at home medications as prescribed. Please return to the hospital if you experience any of the following: Urinary and/or bowel retention or incontinence, numbness/tingling/burning/prickling radiating from your back to your legs, severe pain in your back despite pain medication, weakness in your lower extremities, lightheadedness, dizziness, fainting, shortness of breath, difficulty breathing, or chest pain. It was a pleasure taking care of you while you were in the hospital, Brittany Garcai PA-C Total Time Total Time Spent Total Time Spent (In Minutes): Greater than 30 minutes spent completing this discharge process including direct patient care, medication reconciliation, documentation, review of labs and images, and coordination of care. Coding Level of Care Code 56027 INP/OBS DISCH >30 MIN Diagnoses Lower back pain M54.50 Back pain laterality: bilateral Chronicity: acute Sciatica presence: without sciatica Hypothyroidism in adult E03.9 Hypertension I10 Nonobstructive atherosclerosis of coronary artery I25.10 History of prostate cancer Z85.46
[2023-07-12] MEDS ORDERED: dexAMETHasone 4 MG TAB PO SCH (09:00)
== END 2023-07-11 12:51 | disposition home or self-care (01) | DRG 552 ==
LOC: ED 05:25 → INTOOBSV 13:36 → SUATTDRO 13:36 → 3N 13:36

== ENCOUNTER 2024-11-23 10:22 | Observation (INO) ==
--- NOTE | 2024-11-23 10:30 | Emergency Department Note ---
History of Present Illness General Chief complaint: Back Injury/Pain Stated complaint: BACK PAIN Time Seen by Provider: 11/23/24 10:29 History of Present Illness Maximum Pain Intensity: 8 This is a 74-year-old male who presents to the emergency department via private vehicle with complaints of "back pain". The patient states that this past Friday he was operating a lawnmower. This was a ride on type mower. Not long after he began with an achy sensation in the left low back area with associated numbness/tingling and pain radiating down the left leg. He has felt similar before. He notes history of spine surgery in 2020 performed at [facility]. The patient denies any other trauma or injury. No fevers or chills. However does note recent development of a cough and some congestion over the past few days, at bedside also notes similar symptoms following recent ED visit here. The patient denies any other infectious symptoms. No fevers or chills. The patient denies any bowel or bladder incontinence. No numbness or tingling in the genital area. He however does note some left leg weakness. Current pain 09/26. The patient did note he was recently here in the ED and was given prednisone and pain medicine and was feeling better yesterday but upon awakening today noted return of symptoms that progressively worsened prompting arrival here today. The patient denies any abdominal pain. There is no chest pain or shortness of breath. Home Medications Medication Instructions Recorded Confirmed Type cholecalciferol (vitamin D3) 25 25 mcg PO QAM 04/04/22 11/23/24 History mcg (1,000 unit) capsule [id number] 120 mcg-lutein 1 tab PO QAM 04/04/22 11/23/24 History 150 mcg-herb 50 mg chewable tablet (Alive Men's 50 Plus Multivitamin) olmesartan 40 mg tablet 40 mg PO QAM #90 tabs 02/02/24 11/23/24 Rx rosuvastatin 10 mg tablet 10 mg PO QAM #90 tabs 02/02/24 11/23/24 Rx levothyroxine 50 mcg tablet 50 mcg PO QAM #90 tabs 02/19/24 11/23/24 Rx indapamide 1.25 mg tablet 1.25 mg PO QAM #90 tabs 02/23/24 11/23/24 Rx sildenafil 50 mg tablet 50 - 100 mg (1 - 2 x 50 mg) PO 05/19/24 11/23/24 Rx .COMPLEX PRN sexual activity #30 tabs ibuprofen 200 mg capsule 400 mg PO Q6H PRN Pain 09/06/24 11/23/24 History lidocaine 5 % topical patch 1 patch topical DAILY #15 ea 11/21/24 11/23/24 Rx (Lidoderm) methocarbamol 500 mg tablet 500 mg PO TID PRN muscle spasm #15 11/21/24 11/23/24 Rx tabs prednisone 20 mg tablet 20 mg PO DAILY #18 tabs 11/21/24 11/23/24 Rx tramadol 50 mg tablet 50 - 100 mg (1 - 2 x 50 mg) PO Q6H 11/21/24 11/23/24 Rx PRN pain #15 tabs Allergies Allergy/AdvReac Type Severity Reaction Status Date / Time No Known Allergies Allergy Verified 11/21/24 15:53 Past Med/Surg History Problem List (Updated 11/24/24 @ 00:04 by Gael Zayas PA-C) Rhinovirus infection (Acute) Abnormal magnetic resonance imaging of lumbar spine (Acute) Weakness of left lower extremity (Acute) Numbness and tingling of left lower extremity (Acute) Rhinovirus Acute respiratory failure Acute exacerbation of chronic low back pain (Acute) Spinal stenosis of lumbar region History of prostate cancer (Acute) History of lumbar surgery (Acute) Lower back pain (Acute) Left epididymitis Testicular pain Prostate cancer (Chronic 03/18/22) Right hip pain Nonobstructive atherosclerosis of coronary artery [facility] 2001: 20% prox LAD stenosis, 30% mid LAD stenosis, 50% ramus intermedius Hypothyroidism in adult Erectile dysfunction (Chronic) Hypertension (Chronic) Tubular adenoma of colon (Chronic) Medical History History of COVID-19 approx 2020. Nonobstructive atherosclerosis of coronary artery one was blocked 50 % per pt. Bulging lumbar disc hx injection July 2023. History of colon polyps Slow heart rate ongoing/runs lower heart rate 50-60's as baseline. Asymptomatic. HTN (hypertension) Hypothyroid History of prostate cancer 2021, hx radiation. History of kidney stones Surgical History S/P lumbar laminectomy L3-S1 laminectomy and fusion History of colonoscopy History of cardiac cath 2001 , [facility]. One was blocked 50 % per pt. cath was done due to light headedness, pt reports was under a lot of stress at that time. History of lumbar spinal fusion History of basal cell carcinoma (BCC) excision Hx of appendectomy 1999 History of arthroscopy of left shoulder Family History Mother Dementia Father Heart disease Hypertension Diabetes mellitus, type II Brother Heart disease Kidney transplant recipient, Onset Age: 51 Diabetes Brother Diabetes Heart disease Sister Diabetes Sister No problems noted. 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; Feels Safe at Home: Yes Childhood Exposure to Second-Hand Smoke: No Dental Care, Regularly: No Physical Activity Frequency: Daily Physical Activity Frequency Comment: walk a mile and a half a day Seatbelt Use: always Sunscreen Use: Yes Assistive Devices: Glasses and Hearing Aid - Bilateral Review of Systems A total of 10 systems reviewed and were otherwise negative Physical Exam Vital Signs Vital Signs - 24 hr 11/23/24 10:24 11/23/24 11:21 11/23/24 11:32 Temperature 36.5 C Temperature Source Temporal Artery Scan Pulse Rate 62 51 L Pulse Rate [Apical] 54 L Pulse Rhythm Pulse Rhythm [Apical] Regular Pulse Strength [Apical] Normal Respiratory Rate 18 12 Respiratory Effort / Characteristics Non-Labored Spontaneous Respiratory Depth Normal Respiratory Pattern Regular Blood Pressure 133/71 Blood Pressure [Right Arm] 120/68 Blood Pressure Mean 91 Blood Pressure Mean [Right Arm] 85 Blood Pressure Position [Right Arm] Sitting Pulse Oximetry 96 93 Oxygen Delivery Method Room Air Room Air Sepsis New/Unexplained Change in Mental Status No Sepsis Action Taken by Nursing No Action Required 11/23/24 11:32 11/23/24 12:46 11/23/24 14:00 Temperature Temperature Source Pulse Rate 49 L Pulse Rate [Apical] 48 L 46 L Pulse Rhythm Regular Pulse Rhythm [Apical] Regular Regular Pulse Strength [Apical] Normal Normal Respiratory Rate 12 16 21 Respiratory Effort / Characteristics Non-Labored Spontaneous Non-Labored Spontaneous Respiratory Depth Normal Normal Respiratory Pattern Regular Regular Blood Pressure Blood Pressure [Right Arm] 132/60 121/80 Blood Pressure Mean Blood Pressure Mean [Right Arm] 84 93 Blood Pressure Position [Right Arm] Sitting Lying Pulse Oximetry 93 93 93 Oxygen Delivery Method Room Air Room Air Room Air Sepsis New/Unexplained Change in Mental Status Sepsis Action Taken by Nursing VITAL SIGNS - Vital signs and nursing notes were reviewed. Bradycardic, otherwise stable and afebrile. GENERAL -74-year-old male appearing his stated age who is in no acute distress. Communicates well with provider and answers questions appropriately. SKIN - Without rashes. No meningeal or petechial rash. Surgical scar vertically oriented overlying the inferior L-spine with expected appearance, no sign of secondary infection. HEAD - NC/AT. EYES - Sclera anicteric. EARS - No deformities of external structures noted on gross examination bilaterally. No pain elicited with palpation of the tragus bilaterally. External auditory canals without discharge or otorrhea. Tympanic membranes pearly álvarez without retraction or bulging. No fluid or purulent material visualized behind the TM. Handle of malleus, umbo, cone of light, pars tensa/flaccid all easily visualized. NOSE - Midline and without cyanosis. MOUTH/OROPHARYNX - Without perioral cyanosis. NECK - Neck with FROM. No nuchal rigidity. LUNGS - CTA CARDIAC - RRR ABDOMEN - Abdominal contour normal without pulsations or visible masses. BS normoactive all four quadrants. No tenderness, palpable masses, hepatosplenomegaly, or ascites noted. EXTREMITIES - No clubbing or peripheral cyanosis. +5/5 strength noted in UE/LE bilaterally. MSKthere is reproducible tenderness in the paraspinous musculature of the L- spine inferiorly. No spinous processes tenderness NEUROLOGIC - Cranial nerves II through XII grossly intact. Patellar reflexes +2/4. PSYCH -alert, oriented and pleasant on exam Course Administered Medications Gabapentin (Gabapentin 100 Mg Cap) 100 mg PO BID JAMILAH Stop: 12/23/24 15:09 Last Admin: 11/23/24 21:46 Dose: 100 mg Documented By: Admin: 11/23/24 15:59 Dose: 100 mg Documented By: ALFREDO Guaifenesin (Guaifenesin 600 Mg Tabcr) 1,200 mg PO Q12 JAMILAH Stop: 12/23/24 20:59 Last Admin: 11/23/24 21:46 Dose: 1,200 mg Documented By: KIRBY Heparin Sodium (Porcine) (Heparin Sod 5,000 Unit/0.5 Ml Vial) 5,000 units SQ Q8 JAMILAH Stop: 12/23/24 21:59 Last Admin: 11/23/24 21:50 Dose: 5,000 units Documented By: KIRBY Misdaneaneous (Remove Lidoderm Patch) 1 each N/A DAILY@2100 [facility] Stop: 12/23/24 20:59 Last Admin: 11/23/24 21:46 Dose: 1 each Documented By: KIRBY Dennisaneous (Remove Lidoderm Patch) 1 each N/A DAILY@2100 [facility] Stop: 12/23/24 20:59 Last Admin: 11/23/24 21:46 Dose: 1 each Documented By: KIRBY Tizanidine HCl (Tizanidine Hcl 4 Mg Tablet) 2 mg PO TID [facility] Stop: 12/23/24 20:59 Last Admin: 11/23/24 21:47 Dose: 2 mg Documented By: KIRBY Discontinued Medications Gadobutrol (Gadobutrol 65ml Vial) 8 ml IV ONCE ONE Stop: 11/23/24 12:28 Last Admin: 11/23/24 12:28 Dose: 8 ml Documented By: KLEVER Sodium Chloride (Nss) 500 mls @ 500 mls/hr IV .Q1H ONE Stop: 11/23/24 14:46 Last Infusion: 11/23/24 15:48 Dose: Infused Documented By: Admin: 11/23/24 13:59 Dose: 500 mls/hr Documented By: ALFREDO Lidocaine (Lidocaine 5% 1 Patch) 1 patch TD NOW STA Stop: 11/23/24 13:48 Last Admin: 11/23/24 13:59 Dose: 1 patch Documented By: ALFREDO Methylprednisolone (Methylprednisolone 4 Mg Tab) 4 mg PO NOW ONE Stop: 11/23/24 15:01 Last Admin: 11/23/24 15:59 Dose: 4 mg Documented By: ALFREDO Morphine Sulfate (Morphine Sulfate 2 Mg/Ml Carp) 2 mg IV NOW STA Stop: 11/23/24 11:05 Last Admin: 11/23/24 11:10 Dose: 2 mg Documented By: ALFREDO Morphine Sulfate (Morphine Sulfate 2 Mg/Ml Carp) 2 mg IV NOW STA Stop: 11/23/24 13:48 Last Admin: 11/23/24 13:59 Dose: 2 mg Documented By: ALFREDO Ondansetron HCl (Ondansetron Inj 2 Mg/Ml 2 Ml Vial) 4 mg IV NOW STA Stop: 11/23/24 11:05 Last Admin: 11/23/24 11:10 Dose: 4 mg Documented By: ALFREDO Tizanidine HCl (Tizanidine Hcl 4 Mg Tablet) 2 mg PO ONE ONE Stop: 11/23/24 15:01 Last Admin: 11/23/24 15:59 Dose: 2 mg Documented By: ALFREDO Medical Decision Making Laboratory Data 11/23/24 10:57 11/23/24 10:57 Lab Results 11/23/24 11/23/24 11/23/24 Range/Units 10:52 10:57 10:59 WBC 12.48 H (4.8-10.8) K/ul RBC 4.27 L (4.70-6.10) M/uL Hgb 14.1 (14.0-18.0) g/dl Hct 39.3 L (42.0-52.0) % MCV 92.0 (80.0-100.0) fL MCH 33.0 (25.0-34.0) pg MCHC 35.9 (32.0-36.0) g/dL RDW Std Deviation 43.2 (36.4-46.3) fL RDW Coeff of Harsha 12.9 (11.5-14.5) % Plt Count 143 (130-400) K/uL MPV 11.0 (9.4-12.4) fL Immature Gran % (Auto) 0.5 % Neut % (Auto) 88.7 % Lymph % (Auto) 7.2 % [place] % (Auto) 3.1 % Eos % (Auto) 0.1 % Baso % (Auto) 0.4 % Neut # (Auto) 11.07 H (1.40-6.50) K/uL Lymph # (Auto) 0.90 L (1.20-3.40) K/uL [place] # (Auto) 0.39 (0.11-0.59) K/uL Eos # (Auto) 0.01 (0.00-0.50) K/uL Baso # (Auto) 0.05 (0.00-0.20) K/uL Immature Gran # (Auto) 0.06 (0.01-0.20) K/uL Platelet Estimate Normal (Normal) Polychromasia 1+ Tear Drop Cells 1+ Sodium 138 (136-145) mmol/L Potassium 3.6 (3.5-5.1) mmol/L Chloride 103 (98-107) mmol/L Carbon Dioxide 27 (21-32) mmol/L Anion Gap 8 (3-11) BUN 27 H (6-23) mg/dl Creatinine 1.21 (0.6-1.4) mg/dl Est Cr Clr Drug Dosing 51.9 ml/min eGFR 62.05 BUN/Creatinine Ratio 22.3 H (10-20) Glucose 225 H (70-99(Fasting)) mg/dl Uric Acid 5.2 (2.6-7.2) mg/dl Calcium 9.3 (8.6-10.3) mg/dl Total Bilirubin 0.4 (0.2-1.0) mg/dl AST 22 (13-39) U/L ALT 19 (7-52) U/L Alkaline Phosphatase 36 (34-104) U/L Total Protein 6.7 (6.0-8.3) gm/dl Albumin 4.0 (3.4-5.0) gm/dl Globulin 2.7 (2.5-4.0) gm/dl Albumin/Globulin Ratio 1.5 (0.9-2) Prostate Specific Ag 0.376 (0-4) ng/ml Urine Color Urine Appearance (Clear) Urine pH (4.5-7.5) Ur Specific [place] (1.000-1.030) Urine Protein (Negative) Urine Glucose (UA) (Negative) Urine Ketones (Negative) Urine Blood (Negative) Urine Nitrite (Negative) Urine Bilirubin (Negative) Urine Urobilinogen (Negative) Ur Leukocyte Esterase (Negative) Urine Comment Adenovirus (PCR) Not Detected (NotDetected) B. pertussis DNA (PCR) Not Detected (NotDetected) B.parapertussis DNA PCR Not Detected (NotDetected) C. pneumoniae DNA (PCR) Not Detected (NotDetected) Coronavirus OC43 (PCR) Not Detected (NotDetected) Coronavirus HKU1 (PCR) Not Detected (NotDetected) Coronavirus 229E (PCR) Not Detected (NotDetected) SARS-CoV-2 (PCR) Not Detected (NotDetected) Coronavirus NL63 (PCR) Not Detected (NotDetected) Human Metapneumovir PCR Not Detected (NotDetected) Influenza Type A (PCR) Not Detected (NotDetected) Influenza Type B (PCR) Not Detected (NotDetected) M. pneumoniae (PCR) Not Detected (NotDetected) Parainfluenza 1 (PCR) Not Detected (NotDetected) Parainfluenza 2 (PCR) Not Detected (NotDetected) Parainfluenza 3 (PCR) Not Detected (NotDetected) Parainfluenza 4 (PCR) Not Detected (NotDetected) RSV (PCR) Not Detected (NotDetected) Entero/Rhino (PCR) DETECTED A (NotDetected) 11/23/24 Range/Units 11:02 WBC (4.8-10.8) K/ul RBC (4.70-6.10) M/uL Hgb (14.0-18.0) g/dl Hct (42.0-52.0) % MCV (80.0-100.0) fL MCH (25.0-34.0) pg MCHC (32.0-36.0) g/dL RDW Std Deviation (36.4-46.3) fL RDW Coeff of Harsha (11.5-14.5) % Plt Count (130-400) K/uL MPV (9.4-12.4) fL Immature Gran % (Auto) % Neut % (Auto) % Lymph % (Auto) % [place] % (Auto) % Eos % (Auto) % Baso % (Auto) % Neut # (Auto) (1.40-6.50) K/uL Lymph # (Auto) (1.20-3.40) K/uL [place] # (Auto) (0.11-0.59) K/uL Eos # (Auto) (0.00-0.50) K/uL Baso # (Auto) (0.00-0.20) K/uL Immature Gran # (Auto) (0.01-0.20) K/uL Platelet Estimate (Normal) Polychromasia Tear Drop Cells Sodium (136-145) mmol/L Potassium (3.5-5.1) mmol/L Chloride (98-107) mmol/L Carbon Dioxide (21-32) mmol/L Anion Gap (3-11) BUN (6-23) mg/dl Creatinine (0.6-1.4) mg/dl Est Cr Clr Drug Dosing ml/min eGFR BUN/Creatinine Ratio (10-20) Glucose (70-99(Fasting)) mg/dl Uric Acid (2.6-7.2) mg/dl Calcium (8.6-10.3) mg/dl Total Bilirubin (0.2-1.0) mg/dl AST (13-39) U/L ALT (7-52) U/L Alkaline Phosphatase (34-104) U/L Total Protein (6.0-8.3) gm/dl Albumin (3.4-5.0) gm/dl Globulin (2.5-4.0) gm/dl Albumin/Globulin Ratio (0.9-2) Prostate Specific Ag (0-4) ng/ml Urine Color Dark Yellow Urine Appearance Clear (Clear) Urine pH 5.5 (4.5-7.5) Ur Specific [place] 1.030 (1.000-1.030) Urine Protein Negative (Negative) Urine Glucose (UA) Trace H (Negative) Urine Ketones Trace H (Negative) Urine Blood Negative (Negative) Urine Nitrite Negative (Negative) Urine Bilirubin 1+ H (Negative) Urine Urobilinogen Negative (Negative) Ur Leukocyte Esterase Negative (Negative) Urine Comment Adenovirus (PCR) (NotDetected) B. pertussis DNA (PCR) (NotDetected) B.parapertussis DNA PCR (NotDetected) C. pneumoniae DNA (PCR) (NotDetected) Coronavirus OC43 (PCR) (NotDetected) Coronavirus HKU1 (PCR) (NotDetected) Coronavirus 229E (PCR) (NotDetected) SARS-CoV-2 (PCR) (NotDetected) Coronavirus NL63 (PCR) (NotDetected) Human Metapneumovir PCR (NotDetected) Influenza Type A (PCR) (NotDetected) Influenza Type B (PCR) (NotDetected) M. pneumoniae (PCR) (NotDetected) Parainfluenza 1 (PCR) (NotDetected) Parainfluenza 2 (PCR) (NotDetected) Parainfluenza 3 (PCR) (NotDetected) Parainfluenza 4 (PCR) (NotDetected) RSV (PCR) (NotDetected) Entero/Rhino (PCR) (NotDetected) Imaging Data Radiologist's Impression: Lumbar Spine MRI 11/23/24 10:42 MRI OF THE LUMBAR SPINE WITH AND WITHOUT CONTRAST CLINICAL HISTORY: low back pain, hx spine surgery COMPARISON STUDY: Lumbar spine MRI July 09, 2023. Lumbar spine radiographs October 22, 2024. TECHNIQUE: Utilizing a 1.5 Lauren magnet and dedicated coil, multiplanar, multiecho imaging of the lumbar spine was performed before and after uneventful IV administration of 8 mL of Gadavist. FINDINGS: For purposes of numbering on this exam, the L5-S1 disc space is assigned to axial image 30 of 36. There are stable postoperative findings following L3-S1 decompression and fusion with bilateral pedicle screws in place. Exam is mildly compromised by susceptibility artifact related to hardware. No intracanalicular mass or fluid collection. The conus terminates at the lower L1 level. Paravertebral soft tissues are unremarkable. L1-2: The central canal and neural foramen are patent. L2-3: Moderate disc space narrowing is noted. There are discogenic changes. A mild disc bulge is present. This has decreased since prior MRI. The central disc protrusion is also decreased since prior exam. Note is again made of severe facet arthrosis with ligamentous hypertrophy. Moderate central canal stenosis has decreased compared to previous MRI. Patent AP diameter of the canal is 7.3 mm. There is moderate right and mild left neural foraminal stenosis. L3-4: There is no central canal stenosis status post decompression. There is mild disc bulge. The neural foramen are patent. L4-5: Discectomy is noted. There is no central canal stenosis following posterior decompression. Neural foramen are suboptimally assessed due to artifact. There is stable mild to moderate right and mild left neural foraminal stenosis. L5-S1: Discectomy is noted. There is no central canal stenosis following posterior decompression. Mild to moderate left and mild right neural foraminal stenosis is unchanged. IMPRESSION: 1. Stable following falling L3-S1 decompression and fusion. No central canal stenosis at these levels. 2. Moderate central canal stenosis at L2-L3 due to disc bulge, facet arthrosis and ligamentous hypertrophy. This has improved when compared to MRI of July 09, 2023. 3. No lumbar spine fractures. 4. Mild to moderate multilevel neural foraminal stenosis, as detailed above. ACT 112: Negative or not required by law. Electronically signed by: Cr Grewal M.D. 11/23/2024 1:08 PM [facility] Narrative Patient was seen and evaluated as above in room A4. Review was performed of nursing notes and vital signs. I did review pertinent previous visits and patient history. After obtaining a thorough history and physical examination the above work up was performed. Patient presents with the above symptoms. He has ongoing left low back pain. This radiates down the left leg with associated intermittent weakness. He is neurovascularly intact on my assessment. Options of care were discussed with the patient. IV access was established. Labs were drawn. There is leukocytosis 12.48 likely in the setting of prednisone use and less likely to be infectious. There is a cough and did add on [employer] which was positive for rhinovirus which is felt to be the etiology of the cough. There is no concerning anemia. No evidence of kidney or liver failure but will note some mild dehydration with BUN at 27. Urinalysis does not suggest infection. Noting the patient's continued left-sided lumbar radiculopathy in the setting of L-spine history and MRI of the L-spine with and without contrast was performed to further assess. Results as above. This was overall okay from an emergent standpoint. Details as above. I discussed benefit versus risk of inpatient versus outpatient management. The patient has already tried outpatient management with steroids, analgesia and continues to worsen as of this morning. In discussion with patient and , plan will be for inpatient management. Case discussed with the hospitalist service. Please refer to further documentation regarding his stay. GCS: 15 In the evaluation and treatment of this patient the following differential diagnosis entertained: Fracture, dislocation, subluxation, cauda equina syndrome, AAA, diverticulitis, appendicitis, torsion, osteomyelitis, piriformis syndrome, strain, sprain, among others. Impression & Plan Acute exacerbation of chronic low back pain, Numbness and tingling of left lower extremity, Weakness of left lower extremity, Abnormal magnetic resonance imaging of lumbar spine, Rhinovirus infection Discharge Plan Visit Data Chief Complaint: Back Injury/Pain Stated Complaint: BACK PAIN ED Provider: Hayden Ordonez ED Midlevel Provider: Gael Zayas Discharge Problem: Acute exacerbation of chronic low back pain, Numbness and tingling of left lower extremity, Weakness of left lower extremity, Abnormal magnetic resonance imaging of lumbar spine, Rhinovirus infection Patient Disposition: Admitted As Inpatient Condition: Good Discharge Instructions Interventions: ED Discharge Assessment Last Done: 11/23/24 17:53
[2024-11-23] MEDS: MoRPHine SULFATE 2 MG/ML CARP IV STA ×2 (11:10→13:59)
[2024-11-23] MEDS: ONDANSETRON INJ 2 MG/ML 2 ML VIAL IV STA (11:10)
[2024-11-23 11:16] LABS: Appearance Urine Clear (Clear); Glucose Urine UA Trace (Negative)
[2024-11-23 11:35] LABS: Alanine Aminotransferase 19.0 U/L (7-52); Albumin Globulin Ratio 1.5 (0.9-2); Albumin Level 4.0 gm/dl (3.4-5.0); Alkaline Phosphatase 36.0 U/L (34-104); Anion Gap 8.0 (3-11); Bilirubin,Total 0.4 mg/dl (0.2-1.0); Blood Urea Nitrogen 27.0 mg/dl (6-23); Calcium 9.3 mg/dl (8.6-10.3); Carbon Dioxide 27.0 mmol/L (21-32); Chloride 103.0 mmol/L (98-107); Creatinine Clr Calc Pharmacy 51.9 ml/min; Globulin 2.7 gm/dl (2.5-4.0); Glucose 225.0 mg/dl (70-99(Fasting)); Potassium 3.6 mmol/L (3.5-5.1); Sodium 138.0 mmol/L (136-145); Total Protein 6.7 gm/dl (6.0-8.3)
[2024-11-23 12:02] LABS: Hematocrit (blood only) 39.3 % (42.0-52.0); Hemoglobin 14.1 g/dl (14.0-18.0); Immature Granulocytes # (auto) 0.06 K/uL (0.01-0.20); Immature Granulocytes % (auto) 0.5 %; Mean Corpuscular Hemoglobin 33.0 pg (25.0-34.0); Mean Corpuscular Volume 92.0 fL (80.0-100.0); Platelet Count 143 K/uL (130-400); Polychromasia 1+; RDW Standard Deviation 43.2 fL (36.4-46.3); Red Blood Count 4.27 M/uL (4.70-6.10); Tear Drop Cells 1+; White Blood Count 12.48 K/ul (4.8-10.8)
[2024-11-23 12:11] LABS: Chlamydia pneumoniae PCR Not Detected (NotDetected); Coronavirus 229E PCR Not Detected (NotDetected); Coronavirus CoV-2 (COVID19)PCR Not Detected (NotDetected); Coronavirus HKU1 PCR Not Detected (NotDetected); Coronavirus NL63 PCR Not Detected (NotDetected); Coronavirus OC43PCR Not Detected (NotDetected); Human Metapneumovirus PCR Not Detected (NotDetected); Parainfluenza Virus 1 PCR Not Detected (NotDetected); Parainfluenza Virus 2 PCR Not Detected (NotDetected); Parainfluenza Virus 3 PCR Not Detected (NotDetected); Parainfluenza Virus 4 PCR Not Detected (NotDetected); Respiratory Syncytial VirusPCR Not Detected (NotDetected); Rhinovirus/Enterovirus PCR DETECTED (NotDetected)
[2024-11-23] MEDS: GADOBUTROL 65ML VIAL IV ONE (12:28)
--- NOTE | 2024-11-23 13:09 | Magnetic Resonance Report ---
MRI OF THE LUMBAR SPINE WITH AND WITHOUT CONTRAST CLINICAL HISTORY: low back pain, hx spine surgery COMPARISON STUDY: Lumbar spine MRI July 09, 2023. Lumbar spine radiographs October 22, 2024. TECHNIQUE: Utilizing a 1.5 Lauren magnet and dedicated coil, multiplanar, multiecho imaging of the [facility] spine was performed before and after uneventful IV administration of 8 mL of Gadavist. FINDINGS: For purposes of numbering on this exam, the L5-S1 disc space is assigned to axial image 30 of 36. The re are stable postoperative findings following L3-S1 decompression and fusion with bilateral pedicle screws in place. Exam is mildly compromised by susceptibility artifact related to hardware. No intrac analicular mass or fluid collection. The conus terminates at the lower L1 level. Paravertebral soft t issues are unremarkable. L1-2: The central canal and neural foramen are patent. L2-3: Moderate disc space narrowing is noted. There are discogenic changes. A mild disc bulge is pres ent. This has decreased since prior MRI. The central disc protrusion is also decreased since prior ex am. Note is again made of severe facet arthrosis with ligamentous hypertrophy. Moderate central canal stenosis has decreased compared to previous MRI. Patent AP diameter of the canal is 7.3 mm. There is moderate right and mild left neural foraminal stenosis. L3-4: There is no central canal stenosis status post decompression. There is mild disc bulge. The michelle ral foramen are patent. L4-5: Discectomy is noted. There is no central canal stenosis following posterior decompression. Neur al foramen are suboptimally assessed due to artifact. There is stable mild to moderate right and mild left neural foraminal stenosis. L5-S1: Discectomy is noted. There is no central canal stenosis following posterior decompression. Mil d to moderate left and mild right neural foraminal stenosis is unchanged. IMPRESSION: 1. Stable following falling L3-S1 decompression and fusion. No central canal stenosis at these levels . 2. Moderate central canal stenosis at L2-L3 due to disc bulge, facet arthrosis and ligamentous hypert rophy. This has improved when compared to MRI of July 09, 2023. 3. No lumbar spine fractures. 4. Mild to moderate multilevel neural foraminal stenosis, as detailed above. ACT 112: Negative or not required by law. Electronically signed by: Cr Grewal M.D. 11/23/2024 1:08 PM
[2024-11-23] MEDS: SODIUM CHLORIDE 0.9% 500 ML IV ONE (13:59)
[2024-11-23] MEDS: LIDOCAINE 5% 1 PATCH TD STA (13:59)
[2024-11-23 14:45] LABS: Uric Acid 5.2 mg/dl (2.6-7.2)
[2024-11-23] MEDS ORDERED: POLYETHYLENE (MIRALAX) 17 GM PACK PO PRN (15:14)
[2024-11-23] MEDS ORDERED: MELATONIN 3 MG TAB PO PRN (15:14)
[2024-11-23] MEDS ORDERED: ONDANSETRON INJ 2 MG/ML 2 ML VIAL IV PRN (15:14)
--- NOTE | 2024-11-23 15:14 | History & Physical Report ---
Date of Service November 23, 2024 Assessment & Plan (1) Acute exacerbation of chronic low back pain: Plan: Mr. Manjinder Lopez is a 74 yo male with PMH Of lumbar stenosis s/p L3-S1 decompression and fusion 03/23/2020; prostate cancer, CAD, colonic adenoma, hypertension. he's has surgery on 03/23/2020 for L3-s1 decompressoin and fusion. in addition, he was following with urology for prostate cancer treatment. on Friday11/21/2024, he's was in our ED for intractable low back pain and dc with robaxin, tramadol and prednisone. on 11/23/2024, he's was returning to our hospital with 10/10 lumbar back pain, significant bronchitis with positive for rhinovirus given he has 10/10 pain and his and children concern about his risk for falling, he was referred for admission for IV pain control, PT evaluation monitoring for stability of respiratory status 1. intractable lumbar back pain 2. hx of lumbar stenosis s/p L3-s1 decompression and infusion (03/23/2020) 3. rhinovirus infection, acute brochitis 4. hx or prostate cancer 5. CAD 6, bradycardia 1. intractable lumbar back pain IV ativan, zanaflex, medrol. oxycodone for moderate pain IV morphine for severe pain. he's need to f/u with pain management no hematuria, no bowel or bladder retention PT evaluation he may benefit from meoxican for 5-7 days 2. rhinovirus infection, acute brochitis, mucinex, respiratory precaution 3. hx of prostate cancer he's following with Dr. Ashish Mendoza 4. CAd, hypertension olmesartan 40mg daily, indapemide 1.25mg, crestor 10mg 5. hx of renal stones (2) Acute respiratory failure: (3) Rhinovirus: History of Present Illness Chief Complaint: rhinovirus, bronchitis persistent shortness of breath intractable lumbar back pain. Primary Care Provider: Sylvia Quintanilla MD Mr. Manjinder Lopez is a 74yo male with PMH of lumbar stenosis s/p L3-S1 decompression (03/23/2020), kidney stones, colonic polyps, CAD, hip arthritis, chronic bradycardia he's has had prostate cancer and s/p ADT and started on 05/09/2022 and has 2nd and final injection on 08/13/2022. he's has radiation therapy on 07/25/2022. 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 he's been following with pain management and getting epidural, last one on 09/06/2024. he was in our ED on friday for significant lumbar left side back pain, he was prescribed prednisone, tramadol, robaxin and dc on friday however, on Friday, 11/23, he's continue to has 10/10 back pain, spasm sensation, his robaxin and prednisone did not help in addition, he was having significant congestion, shortness of breath. he's did not responded well with oral pain management and need in patient treatment his is at bedside, has ongoing concern about his inability to bearing weight and inability to manage his pain he's required inpatient admission for IV pain control, with IV ativan for spasm PT evaluation and monitoring Allergies Allergy/AdvReac Type Severity Reaction Status Date / Time No Known Allergies Allergy Verified 11/21/24 15:53 Home Medications Medication Instructions Recorded Confirmed Type cholecalciferol (vitamin D3) 25 25 mcg PO QAM 04/04/22 11/21/24 History mcg (1,000 unit) capsule [id number] 120 mcg-lutein 1 tab PO QAM 04/04/22 11/21/24 History 150 mcg-herb 50 mg chewable tablet (Alive Men's 50 Plus Multivitamin) olmesartan 40 mg tablet 40 mg PO QAM #90 tabs 02/02/24 11/21/24 Rx rosuvastatin 10 mg tablet 10 mg PO QAM #90 tabs 02/02/24 11/21/24 Rx levothyroxine 50 mcg tablet 50 mcg PO QAM #90 tabs 02/19/24 11/21/24 Rx indapamide 1.25 mg tablet 1.25 mg PO QAM #90 tabs 02/23/24 11/21/24 Rx sildenafil 50 mg tablet 50 - 100 mg (1 - 2 x 50 mg) PO 05/19/24 11/21/24 Rx .COMPLEX PRN sexual activity #30 tabs ibuprofen 200 mg capsule 400 mg PO Q6H PRN Pain 09/06/24 11/21/24 History lidocaine 5 % topical patch 1 patch topical DAILY #15 ea 11/21/24 Rx (Lidoderm) methocarbamol 500 mg tablet 500 mg PO TID PRN muscle spasm #15 11/21/24 Rx tabs prednisone 20 mg tablet 20 mg PO DAILY #18 tabs 11/21/24 Rx tramadol 50 mg tablet 50 - 100 mg (1 - 2 x 50 mg) PO Q6H 11/21/24 Rx PRN pain #15 tabs Past Med/Surg History Problem List (Updated 11/23/24 @ 15:08 by Jaiden Bowden DO) Rhinovirus Acute respiratory failure Acute exacerbation of chronic low back pain (Acute) Spinal stenosis of lumbar region History of prostate cancer (Acute) History of lumbar surgery (Acute) Lower back pain (Acute) Left epididymitis Testicular pain Prostate cancer (Chronic 03/18/22) Right hip pain Nonobstructive atherosclerosis of coronary artery [facility] 2001: 20% prox LAD stenosis, 30% mid LAD stenosis, 50% ramus intermedius Hypothyroidism in adult Erectile dysfunction (Chronic) Hypertension (Chronic) Tubular adenoma of colon (Chronic) Medical History History of COVID-19 approx 2020. Nonobstructive atherosclerosis of coronary artery one was blocked 50 % per pt. Bulging lumbar disc hx injection July 2023. History of colon polyps Slow heart rate ongoing/runs lower heart rate 50-60's as baseline. Asymptomatic. HTN (hypertension) Hypothyroid History of prostate cancer 2021, hx radiation. History of kidney stones Surgical History S/P lumbar laminectomy L3-S1 laminectomy and fusion History of colonoscopy History of cardiac cath 2001 , [facility]. One was blocked 50 % per pt. cath was done due to light headedness, pt reports was under a lot of stress at that time. History of lumbar spinal fusion History of basal cell carcinoma (BCC) excision Hx of appendectomy 1999 History of arthroscopy of left shoulder Family History Mother Dementia Father Heart disease Hypertension Diabetes mellitus, type II Brother Heart disease Kidney transplant recipient, Onset Age: 51 Diabetes Brother Diabetes Heart disease Sister Diabetes Sister No problems noted. 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 WEIGHT/BMI reviewed. GEN: Healthy appearing, well-developed, NAD. -Head: NC/AT; -Mouth and throat: MMM. Normal gums, muc wilda, palate,. Good dentition. NECK: Supple, with no masses. CV: RRR, no m/r/g. LUNGS: CTAB, no w/r/c. + for intractable cough; inability to speak in full sentence ABD: Soft, NT/ND, NBS, no masses or organomegaly. SKIN: Warm, well perfused. No skin rashes or abnormal lesions. MSK: lumbar spine tender to palpation; limited range of motion; normal 5/5 strength; normal sensation to soft touch hypertonic muscle. NEURO: AAox3 Results & Data Results & Data Vital Signs (Past 12 Hours) Vital Signs Temp Pulse Pulse Resp BP BP Pulse Ox 11/23/24 14:00 46 L 21 121/80 93 11/23/24 12:46 48 L 16 132/60 93 11/23/24 11:32 49 L 12 93 11/23/24 11:32 54 L 12 120/68 93 11/23/24 11:21 51 L 11/23/24 10:24 36.5 C 62 18 133/71 96 O2 Del Method 11/23/24 14:00 Room Air 11/23/24 12:46 Room Air 11/23/24 11:32 Room Air 11/23/24 11:32 Room Air 11/23/24 11:21 11/23/24 10:24 Room Air Laboratory Results Laboratory Results - last 72 hr 11/23/24 11/23/24 11/23/24 10:52 10:57 10:59 WBC 12.48 H RBC 4.27 L Hgb 14.1 Hct 39.3 L MCV 92.0 MCH 33.0 MCHC 35.9 RDW Std Deviation 43.2 RDW Coeff of Harsha 12.9 Plt Count 143 MPV 11.0 Immature Gran % (Auto) 0.5 Neut % (Auto) 88.7 Lymph % (Auto) 7.2 [place] % (Auto) 3.1 Eos % (Auto) 0.1 Baso % (Auto) 0.4 Neut # (Auto) 11.07 H Lymph # (Auto) 0.90 L [place] # (Auto) 0.39 Eos # (Auto) 0.01 Baso # (Auto) 0.05 Immature Gran # (Auto) 0.06 Platelet Estimate Normal Polychromasia 1+ Tear Drop Cells 1+ Sodium 138 Potassium 3.6 Chloride 103 Carbon Dioxide 27 Anion Gap 8 BUN 27 H Creatinine 1.21 Est Cr Clr Drug Dosing 51.9 eGFR 62.05 BUN/Creatinine Ratio 22.3 H Glucose 225 H Uric Acid 5.2 Calcium 9.3 Total Bilirubin 0.4 AST 22 ALT 19 Alkaline Phosphatase 36 Total Protein 6.7 Albumin 4.0 Globulin 2.7 Albumin/Globulin Ratio 1.5 Prostate Specific Ag 0.376 Urine Color Urine Appearance Urine pH Ur Specific [place] Urine Protein Urine Glucose (UA) Urine Ketones Urine Blood Urine Nitrite Urine Bilirubin Urine Urobilinogen Ur Leukocyte Esterase Urine Comment Adenovirus (PCR) Not Detected B. pertussis DNA (PCR) Not Detected B.parapertussis DNA PCR Not Detected C. pneumoniae DNA (PCR) Not Detected Coronavirus OC43 (PCR) Not Detected Coronavirus HKU1 (PCR) Not Detected Coronavirus 229E (PCR) Not Detected SARS-CoV-2 (PCR) Not Detected Coronavirus NL63 (PCR) Not Detected Human Metapneumovir PCR Not Detected Influenza Type A (PCR) Not Detected Influenza Type B (PCR) Not Detected M. pneumoniae (PCR) Not Detected Parainfluenza 1 (PCR) Not Detected Parainfluenza 2 (PCR) Not Detected Parainfluenza 3 (PCR) Not Detected Parainfluenza 4 (PCR) Not Detected RSV (PCR) Not Detected Entero/Rhino (PCR) DETECTED A 11/23/24 11:02 WBC RBC Hgb Hct MCV MCH MCHC RDW Std Deviation RDW Coeff of Harsha Plt Count MPV Immature Gran % (Auto) Neut % (Auto) Lymph % (Auto) [place] % (Auto) Eos % (Auto) Baso % (Auto) Neut # (Auto) Lymph # (Auto) [place] # (Auto) Eos # (Auto) Baso # (Auto) Immature Gran # (Auto) Platelet Estimate Polychromasia Tear Drop Cells Sodium Potassium Chloride Carbon Dioxide Anion Gap BUN Creatinine Est Cr Clr Drug Dosing eGFR BUN/Creatinine Ratio Glucose Uric Acid Calcium Total Bilirubin AST ALT Alkaline Phosphatase Total Protein Albumin Globulin Albumin/Globulin Ratio Prostate Specific Ag Urine Color Dark Yellow Urine Appearance Clear Urine pH 5.5 Ur Specific [place] 1.030 Urine Protein Negative Urine Glucose (UA) Trace H Urine Ketones Trace H Urine Blood Negative Urine Nitrite Negative Urine Bilirubin 1+ H Urine Urobilinogen Negative Ur Leukocyte Esterase Negative Urine Comment Adenovirus (PCR) B. pertussis DNA (PCR) B.parapertussis DNA PCR C. pneumoniae DNA (PCR) Coronavirus OC43 (PCR) Coronavirus HKU1 (PCR) Coronavirus 229E (PCR) SARS-CoV-2 (PCR) Coronavirus NL63 (PCR) Human Metapneumovir PCR Influenza Type A (PCR) Influenza Type B (PCR) M. pneumoniae (PCR) Parainfluenza 1 (PCR) Parainfluenza 2 (PCR) Parainfluenza 3 (PCR) Parainfluenza 4 (PCR) RSV (PCR) Entero/Rhino (PCR) Diagnostic Findings Lumbar Spine MRI 11/23/24 10:42 MRI OF THE LUMBAR SPINE WITH AND WITHOUT CONTRAST CLINICAL HISTORY: low back pain, hx spine surgery COMPARISON STUDY: Lumbar spine MRI July 09, 2023. Lumbar spine radiographs October 22, 2024. TECHNIQUE: Utilizing a 1.5 Lauren magnet and dedicated coil, multiplanar, multiecho imaging of the lumbar spine was performed before and after uneventful IV administration of 8 mL of Gadavist. FINDINGS: For purposes of numbering on this exam, the L5-S1 disc space is assigned to axial image 30 of 36. There are stable postoperative findings following L3-S1 decompression and fusion with bilateral pedicle screws in place. Exam is mildly compromised by susceptibility artifact related to hardware. No intracanalicular mass or fluid collection. The conus terminates at the lower L1 level. Paravertebral soft tissues are unremarkable. L1-2: The central canal and neural foramen are patent. L2-3: Moderate disc space narrowing is noted. There are discogenic changes. A mild disc bulge is present. This has decreased since prior MRI. The central disc protrusion is also decreased since prior exam. Note is again made of severe facet arthrosis with ligamentous hypertrophy. Moderate central canal stenosis has decreased compared to previous MRI. Patent AP diameter of the canal is 7.3 mm. There is moderate right and mild left neural foraminal stenosis. L3-4: There is no central canal stenosis status post decompression. There is mild disc bulge. The neural foramen are patent. L4-5: Discectomy is noted. There is no central canal stenosis following posterior decompression. Neural foramen are suboptimally assessed due to artifact. There is stable mild to moderate right and mild left neural foraminal stenosis. L5-S1: Discectomy is noted. There is no central canal stenosis following posterior decompression. Mild to moderate left and mild right neural foraminal stenosis is unchanged. IMPRESSION: 1. Stable following falling L3-S1 decompression and fusion. No central canal stenosis at these levels. 2. Moderate central canal stenosis at L2-L3 due to disc bulge, facet arthrosis and ligamentous hypertrophy. This has improved when compared to MRI of July 09, 2023. 3. No lumbar spine fractures. 4. Mild to moderate multilevel neural foraminal stenosis, as detailed above. ACT 112: Negative or not required by law. Electronically signed by: Cr Grewal M.D. 11/23/2024 1:08 PM Medications Administered Current Inpatient Medications Gabapentin (Gabapentin 100 Mg Cap) 100 mg PO BID JAMILAH Stop: 12/23/24 15:09 Guaifenesin (Guaifenesin 600 Mg Tabcr) 1,200 mg PO Q12 JAMILAH Stop: 12/23/24 20:59 Heparin Sodium (Porcine) (Heparin Sod 5,000 Unit/0.5 Ml Vial) 5,000 units SQ Q8 JAMILAH Stop: 12/23/24 21:59 Miscellaneous (Remove Lidoderm Patch) 1 each N/A DAILY@2100 JAMILAH Stop: 12/23/24 20:59 Oxycodone HCl (Oxycodone Hcl Ir 5 Mg Tab (Immediate Release)) 10 mg PO Q6H PRN PRN Reason: Moderate Pain 4-6 Stop: 12/07/24 14:55 Tizanidine HCl (Tizanidine Hcl 4 Mg Tablet) 2 mg PO TID JAMILAH Stop: 12/23/24 20:59 Code Status & VTE Plan Code Status full code PG Care Time/CCT Total # of Minutes Spent Total Time Spent with Patient: Total time spent is greater than 50% in coordination of care (as documented) at patient's floor/unit and/or counseling patient: Coding Level of Care Code 38351 INT INP/OBS CARE 1/40MIN Diagnoses Acute exacerbation of chronic low back pain M54.50; G89.29 Acute respiratory failure J96.00 Rhinovirus B34.8 Time Spent (min) 35
[2024-11-23] MEDS: methylPREDNISolone 4 MG TAB PO ONE (15:59)
[2024-11-23] MEDS: GABAPENTIN 100 MG CAP PO SCH (15:59)
[2024-11-23] MEDS ORDERED: IBUPROFEN 200 MG TAB PO PRN (17:56)
[2024-11-23] MEDS: guaiFENesin 600 MG TABCR PO SCH (21:46)
[2024-11-23] MEDS: REMOVE LIDODERM PATCH SCH ×2 (21:46)
[2024-11-23] MEDS: HEPARIN SOD 5,000 UNIT/0.5 ML VIAL SQ SCH (21:50)
[2024-11-23 22:36] VITALS: RESP 16; O2SAT 96
[2024-11-24 06:35] LABS: Hematocrit (blood only) 36.1 % (42.0-52.0); Hemoglobin 12.6 g/dl (14.0-18.0); Mean Corpuscular Hemoglobin 32.4 pg (25.0-34.0); Mean Corpuscular Volume 92.8 fL (80.0-100.0); Platelet Count 142 K/uL (130-400); RDW Standard Deviation 43.3 fL (36.4-46.3); Red Blood Count 3.89 M/uL (4.70-6.10); White Blood Count 10.75 K/ul (4.8-10.8)
[2024-11-24 06:48] LABS: Anion Gap 6.0 (3-11); Blood Urea Nitrogen 23.0 mg/dl (6-23); Calcium 8.9 mg/dl (8.6-10.3); Carbon Dioxide 29.0 mmol/L (21-32); Chloride 105.0 mmol/L (98-107); Creatinine Clr Calc Pharmacy 58.7 ml/min; Glucose 106.0 mg/dl (70-99(Fasting)); Potassium 3.6 mmol/L (3.5-5.1); Sodium 140.0 mmol/L (136-145)
[2024-11-24 07:20] VITALS: BP 106/67; PULSE 53; TEMP 97.5
[2024-11-24] MEDS: INDAPAMIDE 1.25 MG TAB PO SCH (08:30)
[2024-11-24] MEDS: GABAPENTIN 300 MG CAP PO SCH (08:30)
[2024-11-24] MEDS: CHOLECALCIFEROL 25 MCG (1000 UNITS) TAB PO SCH (08:31)
[2024-11-24] MEDS: LOSARTAN POTASSIUM 50 MG TAB PO SCH (08:31)
[2024-11-24] MEDS: LIDOCAINE 5% 1 PATCH TD SCH (08:31)
[2024-11-24] MEDS: ROSUVASTATIN CALCIUM 10 MG TAB PO SCH (08:32)
[2024-11-24] MEDS: LEVOTHYROXINE SODIUM 50 MCG TABLET PO SCH (08:32)
[2024-11-24] MEDS: SODIUM CHLORIDE 0.9% 500 ML IV SCH (08:34)
[2024-11-24] MEDS: KETOROLAC TROMETHAMINE 15 MG/ML VIAL IV SCH (11:29)
--- NOTE | 2024-11-24 13:00 | Hospitalist Progress Note ---
Date of Service November 24, 2024 Assessment & Plan (1) Acute exacerbation of chronic low back pain: Plan: Mr. Manjinder Lopez is a 74 yo male with PMH Of lumbar stenosis s/p L3-S1 decompression and fusion 03/23/2020; prostate cancer, CAD, colonic adenoma, hypertension. he's has surgery on 03/23/2020 for L3-s1 decompressoin and fusion. in addition, he was following with urology for prostate cancer treatment. on Friday11/21/2024, he's was in our ED for intractable low back pain and dc with robaxin, tramadol and prednisone. on 11/23/2024, he's was returning to our hospital with 10/10 lumbar back pain, significant bronchitis with positive for rhinovirus given he has 10/10 pain and his and children concern about his risk for falling, he was referred for admission for IV pain control, PT evaluation monitoring for stability of respiratory status 1. intractable lumbar back pain 2. hx of lumbar stenosis s/p L3-s1 decompression and infusion (03/23/2020) 3. rhinovirus infection, acute brochitis 4. hx or prostate cancer 5. CAD 6, bradycardia deposition if pain is managable, dc home today with oxycodone, medrol; meloxicam, gabapentin and zanaflex 1. intractable lumbar back pain started toradol IV, zanalfex increased to 4mg TID gabapentin increased to 300 TID IV ativan, zanaflex, medrol. oxycodone for moderate pain IV morphine for severe pain. he's need to f/u with pain management no hematuria, no bowel or bladder retention PT evaluation he may benefit from meoxican for 10-14 days medrol upon dc 2. rhinovirus infection, acute bronchitis, Mucinex, respiratory precaution stable, on room air 3. hx of prostate cancer he's following with Dr. Ashish Mendoza 4. CAd, hypertension olmesartan 40mg daily, indapemide 1.25mg, crestor 10mg 5. hx of renal stones (2) Acute respiratory failure: (3) Rhinovirus: Admission and Anticipated Discharge Date Admission Date: November 23, 2024 Subjective he still have 5/10 pain, left lumbar stabbing pain he's admitted to twisting his back several days ago plan for increase zanalfex to 4mg TID and increased gabapentin 300mg TID c/w medrol added toradol if his pain is managable, plan for dc at 4pm today Physical Exam Physical Exam: VITALS: Reviewed. WEIGHT/BMI reviewed. GEN: Healthy appearing, well-developed, NAD. HEENT -Head: NC/AT; NECK: Supple, with no masses. CV: RRR, no m/r/g. LUNGS: CTAB, no w/r/c. ABD: Soft, NT/ND, NBS, no masses or organomegaly. MSK: limited ROM on lumbar spine, tender to palpation; hypertonic muscle EXT: No clubbing, cyanosis, or edema. NEURO: Ambulating with no limitations. Normal muscle strength and tone. No focal deficits. Results & Data Results & Data Vital Signs (Past 12 Hours) Vital Signs Temp Pulse Resp BP Pulse Ox O2 Del Method 11/24/24 07:19 36.4 C L 53 L 16 106/67 96 Room Air Laboratory Results Laboratory Results - last 72 hr 11/23/24 11/23/24 11/23/24 10:52 10:57 10:59 WBC 12.48 H RBC 4.27 L Hgb 14.1 Hct 39.3 L MCV 92.0 MCH 33.0 MCHC 35.9 RDW Std Deviation 43.2 RDW Coeff of Harsha 12.9 Plt Count 143 MPV 11.0 Immature Gran % (Auto) 0.5 Neut % (Auto) 88.7 Lymph % (Auto) 7.2 [place] % (Auto) 3.1 Eos % (Auto) 0.1 Baso % (Auto) 0.4 Neut # (Auto) 11.07 H Lymph # (Auto) 0.90 L [place] # (Auto) 0.39 Eos # (Auto) 0.01 Baso # (Auto) 0.05 Immature Gran # (Auto) 0.06 Platelet Estimate Normal Polychromasia 1+ Tear Drop Cells 1+ Sodium 138 Potassium 3.6 Chloride 103 Carbon Dioxide 27 Anion Gap 8 BUN 27 H Creatinine 1.21 Est Cr Clr Drug Dosing 51.9 eGFR 62.05 BUN/Creatinine Ratio 22.3 H Glucose 225 H Uric Acid 5.2 Calcium 9.3 Total Bilirubin 0.4 AST 22 ALT 19 Alkaline Phosphatase 36 Total Protein 6.7 Albumin 4.0 Globulin 2.7 Albumin/Globulin Ratio 1.5 Prostate Specific Ag 0.376 Urine Color Urine Appearance Urine pH Ur Specific [place] Urine Protein Urine Glucose (UA) Urine Ketones Urine Blood Urine Nitrite Urine Bilirubin Urine Urobilinogen Ur Leukocyte Esterase Urine Comment Adenovirus (PCR) Not Detected B. pertussis DNA (PCR) Not Detected B.parapertussis DNA PCR Not Detected C. pneumoniae DNA (PCR) Not Detected Coronavirus OC43 (PCR) Not Detected Coronavirus HKU1 (PCR) Not Detected Coronavirus 229E (PCR) Not Detected SARS-CoV-2 (PCR) Not Detected Coronavirus NL63 (PCR) Not Detected Human Metapneumovir PCR Not Detected Influenza Type A (PCR) Not Detected Influenza Type B (PCR) Not Detected M. pneumoniae (PCR) Not Detected Parainfluenza 1 (PCR) Not Detected Parainfluenza 2 (PCR) Not Detected Parainfluenza 3 (PCR) Not Detected Parainfluenza 4 (PCR) Not Detected RSV (PCR) Not Detected Entero/Rhino (PCR) DETECTED A 11/23/24 11/24/24 11:02 05:47 WBC 10.75 RBC 3.89 L Hgb 12.6 L Hct 36.1 L MCV 92.8 MCH 32.4 MCHC 34.9 RDW Std Deviation 43.3 RDW Coeff of Harsha 12.7 Plt Count 142 MPV 10.7 Immature Gran % (Auto) Neut % (Auto) Lymph % (Auto) [place] % (Auto) Eos % (Auto) Baso % (Auto) Neut # (Auto) Lymph # (Auto) [place] # (Auto) Eos # (Auto) Baso # (Auto) Immature Gran # (Auto) Platelet Estimate Polychromasia Tear Drop Cells Sodium 140 Potassium 3.6 Chloride 105 Carbon Dioxide 29 Anion Gap 6 BUN 23 Creatinine 1.07 Est Cr Clr Drug Dosing 58.7 eGFR 71.92 BUN/Creatinine Ratio 21.5 H Glucose 106 H Uric Acid Calcium 8.9 Total Bilirubin AST ALT Alkaline Phosphatase Total Protein Albumin Globulin Albumin/Globulin Ratio Prostate Specific Ag Urine Color Dark Yellow Urine Appearance Clear Urine pH 5.5 Ur Specific [place] 1.030 Urine Protein Negative Urine Glucose (UA) Trace H Urine Ketones Trace H Urine Blood Negative Urine Nitrite Negative Urine Bilirubin 1+ H Urine Urobilinogen Negative Ur Leukocyte Esterase Negative Urine Comment Adenovirus (PCR) B. pertussis DNA (PCR) B.parapertussis DNA PCR C. pneumoniae DNA (PCR) Coronavirus OC43 (PCR) Coronavirus HKU1 (PCR) Coronavirus 229E (PCR) SARS-CoV-2 (PCR) Coronavirus NL63 (PCR) Human Metapneumovir PCR Influenza Type A (PCR) Influenza Type B (PCR) M. pneumoniae (PCR) Parainfluenza 1 (PCR) Parainfluenza 2 (PCR) Parainfluenza 3 (PCR) Parainfluenza 4 (PCR) RSV (PCR) Entero/Rhino (PCR) PG Care Time/CCT Total # of Minutes Spent Total Time Spent with Patient: Total time spent is greater than 50% in coordination of care (as documented) at patient's floor/unit and/or counseling patient: Coding Level of Care Code 74217 SUB INP/OBS CARE /25MIN Diagnoses Acute exacerbation of chronic low back pain M54.50; G89.29 Acute respiratory failure J96.00 Rhinovirus B34.8 Time Spent (min) 25
--- NOTE | 2024-11-25 07:49 | Discharge Summary ---
Discharge Summary Date of Service November 24, 2024 Principal Dx & Hospital Course #1 = Principal Diagnosis (1) Acute exacerbation of chronic low back pain: Hospitalist course. he's has lumbar stenosis s/p L3-s1 decompression and fusion in mar 23, 2020, prostate cancer, CAD, coloic adenomia he's was following with urology for prostate cancer he's was in our ED 2 days prior to admission for low back pain and dc with robaxin, prednisone and tramadol however, 2 days later, he's return to ED with intractable 10/10 side low stabbing low back pain. no blood in the urine. he's admit to twisting and turning his back a few days prior to admission he was then started on zanaflex, medrol, gabapentin, and morphine IV for low back pain on day 2, 11/24/2024, he's mentioned pain improved to 5/10 and requested for discharge no bowel or bladder retention, able to ambulate around the nursing station he was dc home with PRN oxycodone 15mg, zanaflex 4mg TID, gabapentin 300mg TID, medrol he's was provided with 2 weeks course of meloxicam his was updated at bedside. range of motion and spinal precaution explained. he was advised about no driving for next 7-10 days Mr. Manjinder Lopez is a 74 yo male with PMH Of lumbar stenosis s/p L3-S1 decompression and fusion 03/23/2020; prostate cancer, CAD, colonic adenoma, hypertension. he's has surgery on 03/23/2020 for L3-s1 decompressoin and fusion. in addition, he was following with urology for prostate cancer treatment. on Friday11/21/2024, he's was in our ED for intractable low back pain and dc with robaxin, tramadol and prednisone. on 11/23/2024, he's was returning to our hospital with 10/10 lumbar back pain, significant bronchitis with positive for rhinovirus given he has 10/10 pain and his and children concern about his risk for falling, he was referred for admission for IV pain control, PT evaluation monitoring for stability of respiratory status 1. intractable lumbar back pain 2. hx of lumbar stenosis s/p L3-s1 decompression and infusion (03/23/2020) 3. rhinovirus infection, acute brochitis 4. hx or prostate cancer 5. CAD 6, bradycardia deposition if pain is managable, dc home today with oxycodone, medrol; meloxicam, gabapentin and zanaflex 1. intractable lumbar back pain started toradol IV, zanalfex increased to 4mg TID gabapentin increased to 300 TID IV ativan, zanaflex, medrol. oxycodone for moderate pain IV morphine for severe pain. he's need to f/u with pain management no hematuria, no bowel or bladder retention PT evaluation he may benefit from meoxican for 10-14 days medrol upon dc 2. rhinovirus infection, acute bronchitis, Mucinex, respiratory precaution stable, on room air 3. hx of prostate cancer he's following with Dr. Ashish Mendoza 4. CAd, hypertension olmesartan 40mg daily, indapemide 1.25mg, crestor 10mg 5. hx of renal stones (2) Acute respiratory failure: (3) Rhinovirus: Notes For Next Care Provider monitor for creatinine function and H/H while on meloxican amd medrol Medication Changes From Visit added zanaflex 4mg TID and gabapentin 300mg TID added short term course of meloxicam, I will avoid meloxicam fci given that potential for nephrotoxicity Admission HPI Per Admitting Provider Mr. Manjinder Lopez is a 74yo male with PMH of lumbar stenosis s/p L3-S1 decompression (03/23/2020), kidney stones, colonic polyps, CAD, hip arthritis, chronic bradycardia he's has had prostate cancer and s/p ADT and started on 05/09/2022 and has 2nd and final injection on 08/13/2022. he's has radiation therapy on 07/25/2022. 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 he's been following with pain management and getting epidural, last one on 09/06/2024. he was in our ED on friday for significant lumbar left side back pain, he was prescribed prednisone, tramadol, robaxin and dc on friday however, on Friday, 11/23, he's continue to has 10/10 back pain, spasm sensation, his robaxin and prednisone did not help in addition, he was having significant congestion, shortness of breath. he's did not responded well with oral pain management and need in patient treatment his is at bedside, has ongoing concern about his inability to bearing weight and inability to manage his pain he's required inpatient admission for IV pain control, with IV ativan for spasm PT evaluation and monitoring Discharge Exam VITALS: Reviewed. WEIGHT/BMI reviewed. GEN: Healthy appearing, well-developed, NAD. PSYCH: Good Judgment. AOx3. Normal memory, mood, and affect. HEENT -Head: NC/AT; -Eyes: PERRL, EOMI. No discharge or redness; NECK: Supple, with no masses. CV: RRR, no m/r/g. LUNGS: CTAB, no w/r/c. ABD: Soft, NT/ND, NBS, no masses or organomegaly. SKIN: Warm, well perfused. No skin rashes or abnormal lesions. MSK: limited ROM; tender to palpitation at the left lumbar region 5/5 strength in lower extremity NEURO:AAOx3 . Normal muscle strength and tone. No focal deficits. Discharge Plan Discharge Items Patient Disposition: Home - Self-Care Reason For Visit: RHINOVIRUS, BRONCHITIS, 10 BACK PAIN Discharge Diagnosis: intractable lumbar back pain rhinovirus infection Condition on Discharge: Good Activity: Resume your previous activity Lifting: No more than 5 pounds Bathing: No limitations Exercise/Sports: Rest today and Gradually increase as tolerated Non-emergency contact: Primary Care Provider Call non-emergency contact if: you have any medication questions, your symptoms worsen and your pain is unusual for you Follow-up/Referrals: Sylvia Quintanilla MD [Primary Care Provider] - 12/02/24 10:30 am Diet: Regular Addtl Attending Provider Instructions: follow up with pain management avoid twisting or bending movement Pending Studies at Discharge: No Stand-Alone Forms: My [facility], Smoking Cessation Medications and DC Order Prescriptions: New tizanidine 4 mg Tablet 4 mg PO TID 30 Days Qty: 90 0RF gabapentin 300 mg Capsule 300 mg PO TID 30 Days Qty: 90 0RF methylprednisolone [Medrol] 4 mg tablet 4 mg PO BID 7 Days Qty: 14 0RF meloxicam 15 mg tablet 15 mg PO DAILY 14 Days Qty: 14 0RF oxycodone 15 mg tablet 15 mg PO Q8H PRN (Reason: pain) 7 Days Qty: 20 0RF Continued cholecalciferol (vitamin D3) 25 mcg (1,000 unit) capsule 25 mcg PO QAM Alive Men's 50 Plus Multivit 120 mcg-150 mcg -50 mg tablet,chewable 1 tab PO QAM olmesartan 40 mg tablet 40 mg PO QAM Qty: 90 3RF rosuvastatin 10 mg tablet 10 mg PO QAM Qty: 90 3RF levothyroxine 50 mcg tablet 50 mcg PO QAM Qty: 90 3RF Rx Instructions: 1 tablet, 1 hour before breakfast. indapamide 1.25 mg tablet 1.25 mg PO QAM Qty: 90 3RF sildenafil 50 mg tablet 50 - 100 mg PO .COMPLEX PRN (Reason: sexual activity) Qty: 30 3RF Rx Instructions: 50 - 100 mg orally 30 minutes to 4 hours before activity PRN; lidocaine [Lidoderm] 5 % adhesive patch,medicated 1 patch topical DAILY Qty: 15 0RF Rx Instructions: leave on most painful area for up to 12 hrs Discontinued ibuprofen 200 mg capsule 400 mg PO Q6H PRN (Reason: Pain) prednisone 20 mg tablet 20 mg PO DAILY Qty: 18 0RF Rx Instructions: 3 tablets once daily x 3 days, 2 tablets once daily x 3 days, one tablet once daily x 3 days. tramadol 50 mg tablet 50 - 100 mg PO Q6H PRN (Reason: pain) Qty: 15 0RF Rx Instructions: Initial Treatment methocarbamol 500 mg tablet 500 mg PO TID PRN (Reason: muscle spasm) Qty: 15 0RF Discharge Orders: Discharge Order (Routine); Ordered 10/08/25 Ordered By: Jaiden Monson/Other Patient Handouts: Corticosteroid Shots, Back Safety: Bending, Back Safety: Lifting, Back Safety: Pushing and Pulling, Back Safety: Turning Admission Data Admit Date/Time: 11/23/24 14:57 Attending Provider: Jaiden Bowden Admit Provider: Jaiden Bowden Primary Care Provider: Sylvia Quintanilla Other Interventions: Discharge Summary Assessment (RN) Last Done: 11/24/24 14:57 Hospital Stay Data Consultations 11/23/24 14:22 ED Decision to Admit Stat Diagnostic Imagining Performed 11/23/24 10:42 MRI Lumbar Spine [MR lumbar spine wo/w con] Stat Pending Results Patient Have Any Pending Studies at Discharge: No Discharge Instructions Given to Patient (Per Discharging Provider) follow up with pain management avoid twisting or bending movement Total Time Total Time Spent Total Time Spent (In Minutes): 25 Coding Level of Care Code 28992 IN/OBS DISCH 30 MIN/LESS Diagnoses Acute exacerbation of chronic low back pain M54.50; G89.29 Acute respiratory failure J96.00 Rhinovirus B34.8 Time Spent (min) 25
--- NOTE | 2024-11-25 15:12 | Electrocardiogram Report ---
Test Reason : Blood Pressure : */* mmHG Vent. Rate : 48 BPM Atrial Rate : 48 BPM P-R Int : 172 ms QRS Dur : 84 ms QT Int : 464 ms P-R-T Axes : 46 5 41 degrees QTcB Int : 414 ms Sinus bradycardia Otherwise normal ECG Confirmed by Ashok Manzo ([id number]) on 11/25/2024 3:11:50 PM Referred By: REFERRED SELF Confirmed By: Ashok Manzo
== END 2024-11-24 15:22 | disposition home or self-care (01) | DRG 203 ==
LOC: ED 10:22 → INTOOBSV 14:57 → 3E 15:14